=== PATIENT | female | born 1985 | race Caucasian/White ===

== ENCOUNTER 2023-10-10 12:35 | Outpatient (OUT) | payer OTHER, SELFPAY ==
[2023-10-10 13:17] LABS: Basophils Percent Auto 0.4 % (0.2-2.0); Eosinophils Percent Auto 0.6 % (0.9-7.0); Hematocrit 34.3 % (36.0-48.0); Hemoglobin 11.4 g/dL (12.0-16.0); Immature Granulocytes Abs Auto 0.02 10^3/uL (0.00-0.03); Immature Granulocytes Pct Auto 0.3 % (0.0-0.5); Lymphocytes Absolute Auto 1.6 10^3/uL (1.2-3.8); Lymphocytes Percent Auto 23.2 % (20.5-60.0); Mean Corpuscular HGB Conc 33.2 g/dL (29.9-35.2); Mean Corpuscular Hemoglobin 28.5 pg (26.7-34.0); Mean Corpuscular Volume 85.8 fL (81.0-99.0); Mean Platelet Volume 10.8 fL (9.5-13.5); Monocytes Absolute Auto 0.3 10^3/uL (0.3-0.8); Monocytes Percent Auto 4.5 % (1.7-12.0); Neutrophils Absolute Auto 4.9 10^3/uL (1.4-6.5); Platelet Count 213 10^3/uL (150-450); Red Cell Distribution Width 12.7 % (11.0-15.0); White Blood Count 6.9 10^3/uL (4.0-11.0)
[2023-10-10 14:43] LABS: Alanine Aminotransferase 25 U/L (14-59); Albumin Globulin Ratio 1.5; Alkaline Phosphatase 53 U/L (46-116); Anion Gap 12.8; Aspartate Amino Transferase 13 U/L (15-37); BUN Creatinine Ratio 17.7; Bilirubin Total 0.6 mg/dL (0.2-1.0); Calcium 9.5 mg/dL (8.5-10.1); Chloride 106 mmol/L (98-107); Chol HDL Ratio 2.4; Cholesterol 213 mg/dL (<=200); Estimated GFR (African America >60 (>=60); Estimated GFR (Non-African Ame >60 (>=60); Globulin 2.7 g/dL; Glucose 79 mg/dL (74-106); HDL Cholesterol 88 mg/dL (40-60); Potassium 3.8 mmol/L (3.5-5.1); Sodium 141 mmol/L (136-145); Thyroid Stimulating Hormone 0.592 uIU/mL (0.358-3.740); Total Protein 6.7 g/dL (6.4-8.2); Triglycerides 60 mg/dL (<=150)
[2023-10-10 15:11] LABS: Free T4 0.82 ng/dL (0.76-1.46)
== END 2023-10-10 12:36 | disposition home or self-care (01) ==
LOC: LAB 12:38
PROVIDERS: PCP Nurse Practitioner; Visit Provider Nurse Practitioner
DX: K21.9 Gastro-esophageal reflux disease without esophagitis (principal); E55.9 Vitamin D deficiency, unspecified; E03.9 Hypothyroidism, unspecified
CPT/HCPCS: 36415; 80053; 80061; 82306; 84439; 84443; 85025

== ENCOUNTER 2024-01-01 07:53 | Outpatient (OUT) | payer OTHER, SELFPAY ==
--- OUTSIDE RECORDS SUMMARY | 2024-01-01 08:00 | XMS_ITS | CCD ---
Author Organization [facility] Care Team Providers Care Hat Former Name Role Phone AICHHOLZ, ART TEACHER ONEYDA Admitting Unavailable AICHHOLZ, ART TEACHER ONEYDA Attending Unavailable AICHHOLZ, ART TEACHER ONEYDA Consulting Unavailable AICHHOLZ, ART TEACHER ONEYDA Primary Care Unavailable AICHHOLZ, ART TEACHER ONEYDA Primary Care Unavailable AICHHOLZ, ART TEACHER ONEYDA Admitting Unavailable AICHHOLZ, ART TEACHER ONEYDA Attending Unavailable AICHHOLZ, ART TEACHER ONEYDA Consulting Unavailable AICHHOLZ, ART TEACHER ONEYDA Admitting Unavailable AICHHOLZ, ART TEACHER ONEYDA Attending Unavailable AICHHOLZ, ART TEACHER ONEYDA Consulting Unavailable AICHHOLZ, ART TEACHER ONEYDA Primary Care Unavailable AICHHOLZ, ART TEACHER ONEYDA Admitting Unavailable AICHHOLZ, ART TEACHER ONEYDA Attending Unavailable AICHHOLZ, ART TEACHER ONEYDA Consulting Unavailable AICHHOLZ, ART TEACHER ONEYDA Primary Care Unavailable BLAIR CHESTER Consulting Unavailable Asaad, Imad Unavailable MD Arleen Imamy Attending Provider Oneyda Zapata Primary Care Provider Oneyda Zapata Primary Care Unavailable Asaad, Imad Admitting Unavailable Asaad, Imad Attending Unavailable Jodi Oneyda J Primary Care Unavailable Asaad, Imad Admitting Unavailable Asaad, Imad Attending Unavailable KOLBYZ, ONEYDA Attending Unavailable MAYELAHDARRIUSZ, ONEYDA Attending Unavailable Allergies Allergy Classification Reported Allergen(s) Allergy Type Date of Onset Reaction(s) Facility (1 source) Shellfish Drug allergy (disorder) 5 [facility] Repository (2 sources) Shellfish Propensity to adverse reactions anaphylaxis [employer] Other (1 source) Shrimp product Drug allergy (disorder) 3 [facility] Repository Medications Current Medications Medication Drug Class(es) Dates Sig (Normalized) Sig (Original) busPIRone hydrochloride 5 mg oral tablet (3 sources) Start: 01-10-2023 take 5 mg by mouth once daily Buspirone Active 5 MG PO Daily January 10, 2023 12:00am take 1 tablet by chi th every twelve hours busPIRone HCl 5 MG 1 tablet Orally Twice a day Active levothyroxine sodium 0.025 mg oral tablet (3 sources) l-Thyroxine Start: 01-10-2023 take 25 ug by mouth once daily Levothyroxine Active 25 MCG PO Daily January 10, 2023 12:00am Levothyroxine So dium Active polyethylene glycol 3350 [id number] mg / potassium chloride 2970 mg / sodium bicarbonate 6740 mg / sodium chloride 5860 mg / sodium sulfate 26981 mg powder for oral solution (2 sources) Osmotic Laxative Start: 11-26-2022 PEG-3350/Elec trolytes 236 GM as directed Orally once a day for 1 days Oct, Active Vitamin D (2 sources) Vitamin D 2500 M G Active Problems Active Problems Problem Classification Problem Date Documented Da te Episodic/Chronic Abdominal pain (2 sources) Unspecified abdominal pain; Translations: [Unspecified abdominal pain] Onset: 01-10-2023 Episodic Nutritional deficiencies (4 sources) Vitamin D deficiency, unspecified; Translations: [VITAMIN D DEFICIENCY UNSPECIFIED] Onset: 09-28-2022 Chronic Other gastrointestinal disorders (2 sources) Diarrhea; Translations: [Diarrhea, unspecified] Episodic Other gastrointestinal disorders (2 sources) Diarrhea, unspecified; Translations: [Diarrhea, unspecified] Onset: 12-04-2022 Episodic Other nutritional; endocrine; and metabolic disorders (7 sources) Abnormal weight loss; Translations: [ABNORMAL WEIGHT LOSS] Onset: 05-31-2022 Episodic Other nutritional; endocrine; and metabolic disorders (2 sources) Weight loss; Translations: [Abnormal weight loss] Episodic Thyroid disorders (1 source) Hypothyroidism, unspecified; Translations: [HYPOTHYROIDISM UNSPECIFIED] Onset: 10-03-2022 Chronic Past or Other Problems Problem Classification Problem Date Documented Da te Episodic/Chronic Other screening for suspected conditions (not mental disorders or infectious disease) (5 sources) Other specified abnormal findings of blood chemistry; Translations: [OTH SPEC ABNORMAL FINDINGS BLD CHEM] Onset: 06-04-2022 Episodic Residual codes; unclassified (1 source) Tobacco use; Translations: [TOBACCO USE] Onset: 06-06-2022 Episodic Results Test Name Value Interpretation Reference Range Facility Amphetamine Screen Ql (U)Ord ered By: Angeli Bacon on 01-10-2023 Amphetamines Ql (U) Negative Negative [facility] Barbiturates [Presence] in U rine by Screen methodOrdered By: Angeli Bacon on 01-10-2023 Barbiturates Screen Ql (U) Negative Negative [facility] Benzodiazepines Screen Ql (U )Ordered By: Angeli Bacon on 01-10-2023 Benzodiazepines Ql (U) Negative Negative [facility] Benzoylecgonine [Presence] i n Urine by Screen methodOrdered By: Angeli Bacon on 01-10-2023 Benzoylecgonine Screen Ql (U) Negative Negative [facility] Cannabinoids [Presence] in U rine by Screen methodOrdered By: Angeli Bacno on 01-10-2023 Cannabinoids Screen Ql (U) Positive Negative [facility] Comment on above: These are unconfirme d results and should not be used for legal purposes. Drug Cut-Off Concentration: AMPH 1000 ng/mL TABITHA 200 ng/mL MAAME 200 ng/mL COCM 300 ng/mL OP 300 ng/mL PCP 25 ng/mL THC 20 ng/mL Drug Screen,Urineon 01-11-20 23 Amphetamine Screen,Urine Negative Normal Negative [facility] Comment on above: Performed By: #### H IV SCREEN, CELIAC #### [facility] , #### TSH3, HEPATIC, CBC, CRP, LIPASE, ESR #### [facility] [address] [place] [address] [place] Barbiturate Screen,Urine Negative Normal Negative [facility] Comment on above: Performed By: #### H IV SCREEN, CELIAC #### [facility] , #### TSH3, HEPATIC, CBC, CRP, LIPASE, ESR #### [facility] [address] [place] [address] [place] Benzodiazepines Screen,Urine Negative Normal Negative [facility] Comment on above: Performed By: #### H IV SCREEN, CELIAC #### [facility] , #### TSH3, HEPATIC, CBC, CRP, LIPASE, ESR #### [address] Cannabinoid Screen,Urine Positive High Negative [facility] Comment on above: Result Comment: Thes e are unconfirmed results and should not be used for legal purposes. Drug Cut-Off Concentration: AMPH 1000 ng/mL TABITHA 200 ng/mL MAAME 200 ng/mL COCM 300 ng/mL OP 300 ng/mL PCP 25 ng/mL THC 20 ng/mL PERFORMED BY: [place] [address] PATHOLOGIST RECREATION SUPERVISOR BRITTANY WATT M.D. Performed By: #### H IV SCREEN, CELIAC #### [facility] , #### TSH3, HEPATIC, CBC, CRP, LIPASE, ESR #### [address] Cocaine Screen,Urine Negative Normal Negative [facility] Comment on above: Performed By: #### H IV SCREEN, CELIAC #### [facility] , #### TSH3, HEPATIC, CBC, CRP, LIPASE, ESR #### [facility] [address] [place] [address] Opiate Screen,Urine Negative Normal Negative [facility] Comment on above: Performed By: #### H IV SCREEN, CELIAC #### [facility] , #### TSH3, HEPATIC, CBC, CRP, LIPASE, ESR #### [facility] [address] [place] [address] Phencyclidine Screen,Urine Negative Normal Negative [facility] Comment on above: Performed By: #### H IV SCREEN, CELIAC #### [facility] , #### TSH3, HEPATIC, CBC, CRP, LIPASE, ESR #### [address] HCG ( test) IA.rapi d Ql (U)Ordered By: Angeli Bacon on 01-10-2023 HCG ( test) Ql (U) Negative [facility] HCG,Urineon 01-10-2023 Beta HCG ( test) Ql (U) Negative Normal [facility] Comment on above: Result Comment: PERF ORMED BY: [facility] [address] [facility] [address] PATHOLOGIST RECREATION SUPERVISOR BRITTANY AWTT M.D. Performed By: #### H IV SCREEN, CELIAC #### [facility] , #### TSH3, HEPATIC, CBC, CRP, LIPASE, ESR #### [facility] [address] 01-10-2023 L - -------- Specimen: [id number] Received: 01/10/23 Status: ROLAN Hank Num: [id number] Spec Type: Surgical Subm Dr: Angeli Bacon MD Tissues: A Duodenum - Biopsy (DUODENAL BX) B GASTRIC FOR HP (GASTRIC BX HP) C Colon Biopsy (RANDOM COLON BX) Procedures: HE/6, Gross/Micro L4/3, H PYLORI -------- Age/ Patient Sex Location Account Attending Physician -------- Marilee Galindo 37/F [id number] Angeli Bacon MD -------- SPEC NUM: [id number] RECD: 01/10/23 STATUS: ROLAN PYLE NUM: [id number] JESSICA: 01/10/[address]: Angeli Bacon MD ENTERED: 01/10/[address] [facility] [address]: DARRELL TYPE: Surgical DEPT: S ORDERED: HE/6, Gross/Micro L4/3, H PYLORI ORDERED: HE/6, Gross/Micro L4/3, H PYLORI Pathological Diagnosis A, Duodenal biopsy: - Duodenal mucosa with somewhat preserved villous structures in both fragments, but also showing minor degrees of stromal chronic inflammation and nonspecific chronic duodenitis, otherwise without erosion or any significant lymphocytic exocytosis identified, therefore also no features or effect of Gluten hypersensitivity observed or suspected B, Gastric biopsy: - Antral mucosa with mild reactive gastropathy, including mildly associated peptic congestions of the superficial lamina propria, otherwise without erosion, intestinal metaplasia, or any significant stromal chronic inflammation observed - H. pylori immunostain with provided control is also negative for identified Helicobacter organism or infection C, Random colon biopsies: - Colonic mucosa with adequately preserved mucosal glandular architecture in all fragments, and also without any abnormal stromal chronic inflammation, or any other features of microscopic colitis identified -------- Specimen: [id number] Received: 01/10/23 Status: ROLAN Pyle Num: [id number] Spec Type: Surgical Subm Dr: Angeli Bacon MD Tissues: A Duodenum - Biopsy (DUODENAL BX) B GASTRIC FOR HP (GASTRIC BX HP) C Colon Biopsy (RANDOM COLON BX) Procedures: HE/6, Gross/Micro L4/3, H PYLORI -------- Patient: Marilee Galindo [id number] (Continued) -------- Specimen: [id number] Received: 01/10/23 (Continued) Signed (signature on file) Aime Orr MD 01/13/23 1916 -------- Specimen: [id number] Received: 01/10/23 Status: ROLAN Pyle Num: [id number] Spec Type: Surgical Subm Dr: Angeli Bacon MD Tissues: A Duodenum - Biopsy (DUODENAL BX) B GASTRIC FOR HP (GASTRIC BX HP) C Colon Biopsy (RANDOM COLON BX) Procedures: HE/6, Gross/Micro L4/3, H PYLORI -------- Patient: Marilee Galindo [id number] (Continued) -------- Specimen: [id number] Received: 01/10/23-1222 (Continued) Clinical Information Abdomen pain, weight loss, diarrhea, rule out celiac, rule out H. pylori by IHC, rule out microscopic colitis Gross Description A. Received in formalin labeled with the patient's name, date of and duodenal biopsy rule out celiac are two hernández tissues averaging 0.3 cm. Entirely submitted in one cassette labeled A1. B. Received in formalin labeled with the patient's name, date of and gastric biopsy rule out H. pylori is one hernández tissue measuring 0.5 x 0.2 x 0.2 cm. Entirely submitted in one cassette labeled B1. C. Received in formalin labeled with the patient's name, date of and random colon biopsy rule out microscopic colitis are three hernández tissues ranging from 0.2 cm to 0.6 x 0.2 x 0.2 cm. Entirely submitted in one cassette labeled C1. Microscopic Description A. Two H E slides reviewed. The microscopic examination confirms the diagnosis. B. Two H E slides reviewed. The microscopic examination confirms the diagnosis. C. Two H E slides reviewed. The microscopic examination confirms the diagnosis. CPT Codes 87861i3, 50879 -------- -------- Specimen: [id number] Received: 01/10/23 Status: (more content not included)... Normal [facility] Opiates [Presence] in Urine by Screen methodOrdered By: Imad Asaad on 01-10-2023 Opiates Screen Ql (U) Negative Negative [facility] Phencyclidine Screen Ql (U)O rdered By: Imad Asaad on 01-10-2023 Phencyclidine Ql (U) Negative Negative [facility] Alanine aminotransferase [En zymatic activity/volume] in Serum or PlasmaOrdered By: Imad Asaad on 12-04-2022 ALT [Catalytic activity/Vol] 12 U/L 7-52 [facility] Albumin [Mass/volume] in Ser um or Plasma by Bromocresol green (BCG) dye binding methoOrdered By: Imad Asaad on 12-04-2022 Albumin BCG dye [Mass/Vol] 4.4 g/dL 3.5-5.7 [facility] Alkaline phosphatase [Enzyma tic activity/volume] in Serum or PlasmaOrdered By: Imad Asaad on 12-04-2022 ALP [Catalytic activity/Vol] 48 U/L 34-104 [facility] Aspartate aminotransferase [ Enzymatic activity/volume] in Serum or PlasmaOrdered By: Imad Asaad on 12-04-2022 AST [Catalytic activity/Vol] 14 U/L 13-39 [facility] Basophils Auto (Bld) [#/Vol] Ordered By: Imad Asaad on 12-04-2022 Basophils (Bld) [#/Vol] 0.1 10*3/uL 0.0-0.2 [facility] Basophils/100 WBC Auto (Bld) Ordered By: Imad Asaad on 12-04-2022 Basophils/100 WBC (Bld) 0.8 % . F [facility] Bilirubin.direct [Mass/volum e] in Serum or PlasmaOrdered By: Imad Asaad on 12-04-2022 Bilirubin.direct [Mass/Vol] 0.10 mg/dL 0.03-0.18 [facility] Bilirubin.total [Mass/volume ] in Serum or PlasmaOrdered By: Imad Asaad on 12-04-2022 Bilirubin [Mass/Vol] 0.9 mg/dL 0.3-1.0 [facility] C reactive protein [Mass/vol ume] in Serum or PlasmaOrdered By: Imad Asaad on 12-04-2022 CRP [Mass/Vol] < 0.5 mg/dL 0.0-0.5 [facility] C-Reactive Proteinon 023 CRP [Mass/Vol] mg/L Normal 0.0-0.5 [facility] Comment on above: Order Comment: Reaso n for Exam Diarrhea Performed By: #### H IV SCREEN, CELIAC #### [facility] , #### TSH3, HEPATIC, CBC, CRP, LIPASE, ESR #### [address] abdomen pelvis w conon CT abdomen pelvis w con [facility] [address] [place] [address] [place] [address] CT Scan Report Signed Patient: Marilee Galindo MR#: [id number] : 1985 Acct:[id number] Age/Sex: 37 / F ADM Date: 12/04/22 Loc: CT Room: Type: [facility] Attending Dr: Angeli Bacon MD Copies to: Angeli Bacon MD Ordering Provider: Angeli Bacon MD Date of Service: 12/04/22 CT/CT abdomen pelvis w con: Diarrhea;Weight loss;Acute abdominal pain CT ABDOMEN AND PELVIS WITH INTRAVENOUS CONTRAST: CLINICAL HISTORY: Diarrhea weight loss acute abdominal pain. COMPARISON: None TECHNIQUE: Spiral images were obtained through the abdomen and pelvis following the administration of intravenous contrast. This CT exam was performed using one or more following dose reduction techniques: Automated exposure control, adjustment of the mA and/or kV according to patient size, or use of iterative reconstruction technique. FINDINGS: Lung Bases: [No acute findings.] Organs:Gallbladder has been removed. Liver spleen pancreas and adrenal glands all appear unremarkable. No enhancing renal mass or hydronephrosis. Abdominal aorta appears normal in caliber.[ GI: Stomach is grossly unremarkable. Small bowel appears nondilated. No acute colonic abnormality.[ Pelvis:[Urinary bladder is grossly unremarkable. Fibroid uterus. No adnexal mass.] Peritoneum/Retroperit oneum:Trace free fluid. No free air. No lymphadenopathy.[ Abd wall/Bones:Abdominal wall demonstrates no acute findings. Osseous structures demonstrate degenerative change.[ CT/CT abdomen pelvis w con IMPRESSION: No acute findings. Impression dictated by: Roland Piper Jr., D.O.12/04/2022 4:33 PM Dictation Location: [place] [address] Transcribed By: [facility] 12/04/22 1633 Dictated By: Roland Piper Jr, DO 12/04/22 1628 Signed By: 12/04/22 1633 [facility] Celiacon 12-04-2022 Deamidated Gliadin Abs, IgA 4 Normal 0-19 [facility] Comment on above: Order Comment: Reaso n for Exam Diarrhea Result Comment: Nega tive 0 - 19 Weak Positive 20 - 30 Moderate to Strong Positive >30 Performed By: #### H IV SCREEN, CELIAC #### [facility] , #### TSH3, HEPATIC, CBC, CRP, LIPASE, ESR #### [facility] [address] Deamidated Gliadin Abs, IgG 7 Normal 0-19 [facility] Comment on above: Order Comment: Reaso n for Exam Diarrhea Result Comment: Nega tive 0 - 19 Weak Positive 20 - 30 Moderate to Strong Positive >30 Performed By: #### H IV SCREEN, CELIAC #### [facility] , #### TSH3, HEPATIC, CBC, CRP, LIPASE, ESR #### [facility] [address] [place] [address] [place] Endomysial Antibody IgA Negative Normal Negative [facility] Comment on above: Order Comment: Reaso n for Exam Diarrhea Performed By: #### H IV SCREEN, CELIAC #### [facility] , #### TSH3, HEPATIC, CBC, CRP, LIPASE, ESR #### [facility] [address] Immunoglobulin A, Qn, Serum 82 mg/dL Low 87-352 [facility] Comment on above: Order Comment: Reaso n for Exam Diarrhea Result Comment: Perf ormed at: [facility] [address] [id number] Reimbursement Consultant: Tj Jean PhD, Phone: [phone] Performed By: #### H IV SCREEN, CELIAC #### [facility] , #### TSH3, HEPATIC, CBC, CRP, LIPASE, ESR #### [facility] [address] [place] [address] T-Transglutaminase (tTG) IgA <2 Normal 0-3 [facility] Comment on above: Order Comment: Reaso n for Exam Diarrhea Result Comment: Nega tive 0 - 3 Weak Positive 4 - 10 Positive >10 Tissue Transglutaminase (tTG) has been identified as the endomysial antigen. Studies have demonstr- ated that endomysial IgA antibodies have over 99% specificity for gluten sensitive enteropathy. Performed By: #### H IV SCREEN, CELIAC #### [facility] , #### TSH3, HEPATIC, CBC, CRP, LIPASE, ESR #### [facility] [address] [place] [address] [place] T-Transglutaminase (tTG) IgG 3 Normal 0-5 [facility] Comment on above: Order Comment: Reaso n for Exam Diarrhea Result Comment: Nega tive 0 - 5 Weak Positive 6 - 9 Positive >9 Performed By: #### H IV SCREEN, CELIAC #### [facility] , #### TSH3, HEPATIC, CBC, CRP, LIPASE, ESR #### [facility] [address] Complete Blood Count Auto Di ffon 12-04-2022 Basophils (Bld) [#/Vol] 0.1 10*3/uL Normal 0.0-0.2 [facility] Comment on above: Order Comment: Reaso n for Exam Diarrhea Performed By: #### H IV SCREEN, CELIAC #### [facility] , #### TSH3, HEPATIC, CBC, CRP, LIPASE, ESR #### [facility] [address] [place] [address] Basophils/100 WBC (Bld) 0.8 % Normal . [facility] Comment on above: Order Comment: Reaso n for Exam Diarrhea Performed By: #### H IV SCREEN, CELIAC #### [facility] , #### TSH3, HEPATIC, CBC, CRP, LIPASE, ESR #### [address] Eosinophils (Bld) [#/Vol] 0.2 10*3/uL Normal 0.0-0.45 [facility] Comment on above: Order Comment: Reaso n for Exam Diarrhea Performed By: #### H IV SCREEN, CELIAC #### [facility] , #### TSH3, HEPATIC, CBC, CRP, LIPASE, ESR #### [facility] [address] [place] [address] Eosinophils/100 WBC (Bld) 2.1 % Normal . [facility] Comment on above: Order Comment: Reaso n for Exam Diarrhea Performed By: #### H IV SCREEN, CELIAC #### [facility] , #### TSH3, HEPATIC, CBC, CRP, LIPASE, ESR #### [facility] [address] [place] [address] Erythrocyte distribution width (RBC) [Ratio] 13.3 % Normal 11.9-15.3 [facility] Comment on above: Order Comment: Reaso n for Exam Diarrhea Performed By: #### H IV SCREEN, CELIAC #### [facility] , #### TSH3, HEPATIC, CBC, CRP, LIPASE, ESR #### [facility] [address] [place] [address] Hematocrit (Bld) [Volume fraction] 37.0 % Normal 34.0-46.4 [facility] Comment on above: Order Comment: Reaso n for Exam Diarrhea Performed By: #### H IV SCREEN, CELIAC #### [facility] , #### TSH3, HEPATIC, CBC, CRP, LIPASE, ESR #### [address] Hemoglobin (Bld) [Mass/Vol] 12.7 g/dL Normal 11.8-15.4 [facility] Comment on above: Order Comment: Reaso n for Exam Diarrhea Performed By: #### H IV SCREEN, CELIAC #### [facility] , #### TSH3, HEPATIC, CBC, CRP, LIPASE, ESR #### [address] Lymphocytes (Bld) [#/Vol] 2.0 10*3/uL Normal 1.00-4.8 [facility] Comment on above: Order Comment: Reaso n for Exam Diarrhea Performed By: #### H IV SCREEN, CELIAC #### [facility] , #### TSH3, HEPATIC, CBC, CRP, LIPASE, ESR #### [address] Lymphocytes/100 WBC (Bld) 27.8 % Normal . [facility] Comment on above: Order Comment: Reaso n for Exam Diarrhea Performed By: #### H IV SCREEN, CELIAC #### [facility] , #### TSH3, HEPATIC, CBC, CRP, LIPASE, ESR #### [address] MCH (RBC) [Entitic mass] 28.2 pg Normal 24.7-34.3 [facility] Comment on above: Order Comment: Reaso n for Exam Diarrhea Performed By: #### H IV SCREEN, CELIAC #### [facility] , #### TSH3, HEPATIC, CBC, CRP, LIPASE, ESR #### [facility] [address] MCV (RBC) [Entitic vol] 82.4 fL Normal 80-100 F [facility] Comment on above: Order Comment: Reaso n for Exam Diarrhea Performed By: #### H IV SCREEN, CELIAC #### [facility] , #### TSH3, HEPATIC, CBC, CRP, LIPASE, ESR #### [facility] [address] [place] [address] Mean Corpuscular HGB Conc 34.3 g/dL Normal 32.0-35.0 [facility] Comment on above: Order Comment: Reaso n for Exam Diarrhea Performed By: #### H IV SCREEN, CELIAC #### [facility] , #### TSH3, HEPATIC, CBC, CRP, LIPASE, ESR #### [facility] [address] [place] [address] Monocytes (Bld) [#/Vol] 0.5 10*3/uL Normal 0.0-0.8 [facility] Comment on above: Order Comment: Reaso n for Exam Diarrhea Performed By: #### H IV SCREEN, CELIAC #### [facility] , #### TSH3, HEPATIC, CBC, CRP, LIPASE, ESR #### [facility] [address] [place] [address] Monocytes/100 WBC (Bld) 6.4 % Normal . [facility] Comment on above: Order Comment: Reaso n for Exam Diarrhea Performed By: #### H IV SCREEN, CELIAC #### [facility] , #### TSH3, HEPATIC, CBC, CRP, LIPASE, ESR #### [facility] [address] [place] [address] Neutrophils (Bld) [#/Vol] 4.5 10*3/uL Normal 1.8-7.7 [facility] Comment on above: Order Comment: Reaso n for Exam Diarrhea Performed By: #### H IV SCREEN, CELIAC #### [facility] , #### TSH3, HEPATIC, CBC, CRP, LIPASE, ESR #### [facility] [address] Neutrophils/100 WBC (Bld) 62.9 % Normal . [facility] Comment on above: Order Comment: Reaso n for Exam Diarrhea Performed By: #### H IV SCREEN, CELIAC #### [facility] , #### TSH3, HEPATIC, CBC, CRP, LIPASE, ESR #### [facility] [address] [place] [address] NRBC% 0.1 /100{WBC} Normal 0-0.5 [facility] Comment on above: Order Comment: Reaso n for Exam Diarrhea Performed By: #### H IV SCREEN, CELIAC #### [facility] , #### TSH3, HEPATIC, CBC, CRP, LIPASE, ESR #### [facility] [address] [place] [address] Platelet mean volume (Bld) [Entitic vol] 8.9 fL Normal 6.3-10.7 [facility] Comment on above: Order Comment: Reaso n for Exam Diarrhea Performed By: #### H IV SCREEN, CELIAC #### [facility] , #### TSH3, HEPATIC, CBC, CRP, LIPASE, ESR #### [facility] [address] [place] [address] [place] Platelets (Bld) [#/Vol] 197 10*3/uL Normal 150-450 [facility] Comment on above: Order Comment: Reaso n for Exam Diarrhea Performed By: #### H IV SCREEN, CELIAC #### [facility] , #### TSH3, HEPATIC, CBC, CRP, LIPASE, ESR #### [facility] [address] [place] [address] [place] RBC (Bld) [#/Vol] 4.49 10*6/uL Normal 3.60-5.00 [facility] Comment on above: Order Comment: Reaso n for Exam Diarrhea Performed By: #### H IV SCREEN, CELIAC #### [facility] , #### TSH3, HEPATIC, CBC, CRP, LIPASE, ESR #### [facility] [address] [place] [address] WBC (Bld) [#/Vol] 7.2 10*3/uL Normal 3.8-11.6 [facility] Comment on above: Order Comment: Reaso n for Exam Diarrhea Performed By: #### H IV SCREEN, CELIAC #### [facility] , #### TSH3, HEPATIC, CBC, CRP, LIPASE, ESR #### [facility] [address] [place] [address] Eosinophils Auto (Bld) [#/Vo l]Ordered By: Imad Asaad on 12-04-2022 Eosinophils (Bld) [#/Vol] 0.2 10*3/uL 0.0-0.45 [facility] Eosinophils/100 WBC Auto (Bl d)Ordered By: Imad Asaad on 12-04-2022 Eosinophils/100 WBC (Bld) 2.1 % . [facility] Erythrocyte Sedimentation Ra cary 12-04-2022 ESR (Bld) [Velocity] 2 mm/h Normal 0-19 [facility] Comment on above: Order Comment: Reaso n for Exam Diarrhea Result Comment: PERF ORMED BY: [place] [address] PATHOLOGIST RECREATION SUPERVISOR BRITTANY WATT M.D. Performed By: #### H IV SCREEN, CELIAC #### [facility] , #### TSH3, HEPATIC, CBC, CRP, LIPASE, ESR #### [facility] [address] [place] [address] Erythrocyte distribution wid th Auto (RBC) [Ratio]Ordered By: Imad Asaad on 12-04-2022 Erythrocyte distribution width (RBC) [Ratio] 13.3 % 11.9-15.3 [facility] Erythrocyte sedimentation ra te by Photometric methodOrdered By: Imad Asaad on 12-04-2022 ESR Photometric method (Bld) [Velocity] 2 mm/hr 0-19 [facility] Globulin Calc (S) [Mass/Vol] Ordered By: Imad Asaad on 12-04-2022 Globulin (S) [Mass/Vol] 2.0 g/dL F [facility] HIV 1/O/2 Antigen/Antibodyo n 12-04-2022 HIV Screen 4th Generation Non-Reactive Normal Non Reactive [facility] Comment on above: Order Comment: Reaso n for Exam Diarrhea Result Comment: HIV Negative HIV-1/HIV-2 antibodies and HIV-1 p24 antigen were NOT detected. There is no laboratory evidence of HIV infection. Performed at: [facility] [address] [place], [place] [id number] Reimbursement Consultant: Tj Jean PhD, Phone: [phone] PERFORMED BY: [place] [address] PATHOLOGIST RECREATION SUPERVISOR BRITTANY WATT M.D. Performed By: #### H IV SCREEN, CELIAC #### [facility] , #### TSH3, HEPATIC, CBC, CRP, LIPASE, ESR #### [address] HIV 1 and HIV-2 antibody ass ay with HIV-1 p24 antigen detectionOrdered By: Imad Asa on 12-04-2022 HIV 1+2 Ab+HIV1 p24 Ag IA Ql Non-Reactive Non Reactive [facility] Comment on above: HIV NegativeHIV-1/HI V-2 antibodies and HIV-1 p24 antigen were NOTdetected. There is no laboratory evidence of HIV infection.Performed at: [id number] [place], [place] [id number] Director: Tj Jean PhD, Phone: [phone] Hematocrit Auto (Bld) [Volum e fraction]Ordered By: Imad Asaad on 12-04-2022 Hematocrit (Bld) [Volume fraction] 37.0 % 34.0-46.4 [facility] Hemoglobin [Mass/volume] in BloodOrdered By: Imamy Asaad on 12-04-2022 Hemoglobin (Bld) [Mass/Vol] 12.7 g/dL 11.8-15.4 [facility] Hepatic Panelon 12-04-2022 Albumin [Mass/Vol] 4.4 g/dL Normal 3.5-5.7 [facility] Comment on above: Order Comment: Reaso n for Exam Diarrhea Performed By: #### H IV SCREEN, CELIAC #### [facility] , #### TSH3, HEPATIC, CBC, CRP, LIPASE, ESR #### [facility] [address] [place] [address] [place] Albumin/Globulin [Mass ratio] 2.2 {ratio} Normal [facility] Comment on above: Order Comment: Reaso n for Exam Diarrhea Performed By: #### H IV SCREEN, CELIAC #### [facility] , #### TSH3, HEPATIC, CBC, CRP, LIPASE, ESR #### [facility] [address] [place] [id number] [place] ALP [Catalytic activity/Vol] 48 U/L Normal 34-104 [facility] Comment on above: Order Comment: Reaso n for Exam Diarrhea Performed By: #### H IV SCREEN, CELIAC #### [facility] , #### TSH3, HEPATIC, CBC, CRP, LIPASE, ESR #### [facility] [address] [place] [address] [place] ALT [Catalytic activity/Vol] 12 U/L Normal 7-52 [facility] Comment on above: Order Comment: Reaso n for Exam Diarrhea Performed By: #### H IV SCREEN, CELIAC #### [facility] , #### TSH3, HEPATIC, CBC, CRP, LIPASE, ESR #### [facility] [address] [place] [id number] [place] AST [Catalytic activity/Vol] 14 U/L Normal 13-39 [facility] Comment on above: Order Comment: Reaso n for Exam Diarrhea Performed By: #### H IV SCREEN, CELIAC #### [facility] , #### TSH3, HEPATIC, CBC, CRP, LIPASE, ESR #### [facility] [address] Bilirubin [Mass/Vol] 0.9 mg/dL Normal 0.3-1.0 [facility] Comment on above: Order Comment: Reaso n for Exam Diarrhea Performed By: #### H IV SCREEN, CELIAC #### [facility] , #### TSH3, HEPATIC, CBC, CRP, LIPASE, ESR #### [address] Bilirubin,Indirect 0.8 mg/dL Normal [facility] Comment on above: Order Comment: Reaso n for Exam Diarrhea Performed By: #### H IV SCREEN, CELIAC #### [facility] , #### TSH3, HEPATIC, CBC, CRP, LIPASE, ESR #### [address] Bilirubin.indirect [Mass/Vol] 0.10 mg/dL Normal 0.03-0.18 [facility] Comment on above: Order Comment: Reaso n for Exam Diarrhea Performed By: #### H IV SCREEN, CELIAC #### [facility] , #### TSH3, HEPATIC, CBC, CRP, LIPASE, ESR #### [address] Globulin (S) [Mass/Vol] 2.0 g/dL Normal [facility] Comment on above: Order Comment: Reaso n for Exam Diarrhea Performed By: #### H IV SCREEN, CELIAC #### [facility] , #### TSH3, HEPATIC, CBC, CRP, LIPASE, ESR #### [facility] [address] [place] [address] Protein [Mass/Vol] 6.4 g/dL Normal 6.4-8.9 [facility] Comment on above: Order Comment: Reaso n for Exam Diarrhea Performed By: #### H IV SCREEN, CELIAC #### [facility] , #### TSH3, HEPATIC, CBC, CRP, LIPASE, ESR #### [facility] [address] [place] [address] [place] IgA [Mass/volume] in Serum o r PlasmaOrdered By: Imad Asaad on 12-04-2022 IgA [Mass/Vol] 82 mg/dL 87-352 [facility] Comment on above: Performed at: [address] [id number] Director: Tj Jean PhD, Phone: [phone] Leukocytes [#/volume] correc cassidy for nucleated erythrocytes in Blood by Automated counOrdered By: Imad Asaad on 12-04-2022 WBC corrected for nucl RBC Auto (Bld) [#/Vol] 7.2 10*3/uL 3.8-11.6 [facility] Lipaseon 12-04-2022 Lipase [Catalytic activity/Vol] 16.0 U/L Normal 11.0-82.0 [facility] Comment on above: Order Comment: Reaso n for Exam Diarrhea Performed By: #### H IV SCREEN, CELIAC #### [facility] , #### TSH3, HEPATIC, CBC, CRP, LIPASE, ESR #### [facility] [address] [place] [address] [place] Lipase [Enzymatic activity/v olume] in Serum or PlasmaOrdered By: Imad Asaad on 12-04-2022 Lipase [Catalytic activity/Vol] 16.0 U/L 11.0-82.0 [facility] Lymphocytes Auto (Bld) [#/Vo l]Ordered By: Imad Asaad on 12-04-2022 Lymphocytes (Bld) [#/Vol] 2.0 10*3/uL 1.00-4.8 [facility] Lymphocytes/100 WBC Auto (Bl d)Ordered By: Imad Asaad on 12-04-2022 Lymphocytes/100 WBC (Bld) 27.8 % . [facility] MCH Auto (RBC) [Entitic mass ]Ordered By: Imad Asaad on 12-04-2022 MCH (RBC) [Entitic mass] 28.2 pg 24.7-34.3 [facility] MCHC Auto (RBC) [Mass/Vol]Or dered By: Imad Asaad on 12-04-2022 MCHC (RBC) [Mass/Vol] 34.3 g/dL 32.0-35.0 [facility] MCV Auto (RBC) [Entitic vol] Ordered By: Imad Asaad on 12-04-2022 MCV (RBC) [Entitic vol] 82.4 fL 80-100 F [facility] Monocytes Auto (Bld) [#/Vol] Ordered By: Imad Asaad on 12-04-2022 Monocytes (Bld) [#/Vol] 0.5 10*3/uL 0.0-0.8 [facility] Monocytes/100 WBC Auto (Bld) Ordered By: Imad Asaad on 12-04-2022 Monocytes/100 WBC (Bld) 6.4 % . F [facility] Neutrophils Auto (Bld) [#/Vo l]Ordered By: Imad Asaad on 12-04-2022 Neutrophils (Bld) [#/Vol] 4.5 10*3/uL 1.8-7.7 [facility] Neutrophils/100 WBC Auto (Bl d)Ordered By: Imad Asaad on 12-04-2022 Neutrophils/100 WBC (Bld) 62.9 % . [facility] No Panel InformationOrdered By: Imad Asaad on 12-04-2022 Endomysial IgA Antibody Negative Negative [facility] Nucleated erythrocytes [Pres ence] in Blood by Automated countOrdered By: Imad Asaad on 12-04-2022 Nucleated RBC Auto Ql (Bld) 0.1 /100{WBC} 0-0.5 [facility] Platelet mean volume Auto (B ld) [Entitic vol]Ordered By: Imad Asaad on 12-04-2022 Platelet mean volume (Bld) [Entitic vol] 8.9 fL 6.3-10.7 [facility] Platelets Auto (Bld) [#/Vol] Ordered By: Imad Asaad on 12-04-2022 Platelets (Bld) [#/Vol] 197 10*3/uL 150-450 [facility] Protein [Mass/volume] in Ser um or PlasmaOrdered By: [facility] on 12-04-2022 Protein [Mass/Vol] 6.4 g/dL 6.4-8.9 [facility] RBC Auto (Bld) [#/Vol]Ordere d By: [facility] on 12-04-2022 RBC (Bld) [#/Vol] 4.49 10*6/uL 3.60-5.00 [facility] Serum gliadin peptide IgA an tibody assay (units/volume)Ordered By: [facility] on 12-04-2022 Gliadin peptide IgA Qn (S) 4 units 0-19 [facility] Comment on above: Negative 0 - 19 Weak Positive 20 - 30 Moderate to Strong Positive >30 Serum gliadin peptide IgG an tibody assay (units/volume)Ordered By: [facility] on 12-04-2022 Gliadin peptide IgG Qn (S) 7 units 0-19 [facility] Comment on above: Negative 0 - 19 Weak Positive 20 - 30 Moderate to Strong Positive >30 Serum or plasma albumin/glob ulin mass ratioOrdered By: [facility] on 12-04-2022 Albumin/Globulin [Mass ratio] 2.2 {ratio} [facility] Serum or plasma non-glucuron idated bilirubin measurement (mass/volume)Ordered By: [facility] 12-04-2022 Bilirubin.indirect [Mass/Vol] 0.8 mg/dL [facility] Serum tissue transglutaminas e (tTG) IgA antibody assay (units/volume)Ordered By: [facility] 12-04-2022 tTG IgA Qn (S) <2 U/mL 0-3 [facility] Comment on above: Negative 0 - 3 Weak Positive 4 - 10 Positive >10 Tissue Transglutaminase (tTG) has been identified as the endomysial antigen. Studies have demonstr- ated that endomysial IgA antibodies have over 99% specificity for gluten sensitive enteropathy. Serum tissue transglutaminas e (tTG) IgG antibody assay (units/volume)Ordered By: [facility] on 12-04-2022 tTG IgG Qn (S) 3 U/mL 0-5 [facility] Comment on above: Negative 0 - 5 Weak Positive 6 - 9 Positive >9 Thyroid Stimulating Hormoneo n 12-04-2022 TSH Qn 0.53 m[IU]/L Normal 0.45-5.33 [facility] Comment on above: Order Comment: Reaso n for Exam Diarrhea Result Comment: PERF ORMED BY: [facility] [address] [place] [address] PATHOLOGIST RECREATION SUPERVISOR BRITTANY WATT M.D. Performed By: #### H IV SCREEN, CELIAC #### [facility] , #### TSH3, HEPATIC, CBC, CRP, LIPASE, ESR #### [facility] [address] Thyrotropin [Units/volume] i n Serum or PlasmaOrdered By: Angeli Bacon on 12-04-2022 TSH Qn 0.53 m[IU]/L 0.45-5.33 [facility] WBC Auto (Bld) [#/Vol]Ordere d By: Imad Arleen on 12-04-2022 WBC (Bld) [#/Vol] 7.2 10*3/uL 3.8-11.6 [facility] FREE T3on 09-28-2022 FREE T3 2.72 pg/mlL Normal 2.18-3.98 [facility] Comment on above: Performed By: #### F T3, TSH ####[facility] [address] [place], [place] [address]VbDr. Remberto Orr FREE T4on 09-28-2022 Free T4 [Mass/Vol] 0.94 ng/dL Normal 0.76-1.46 [facility] Comment on above: Performed By: #### F T4, VITAD #### [facility] [address] [place], [place] [address] Dr. Remberto Orr TSHon 09-28-2022 TSH 0.595 uIU/mL Normal 0.358-3.740 [facility] Comment on above: Performed By: #### F T3, TSH ####[facility] [address] [place], [place] [address]ZxDr. Remberto Orr VITAMIN D 25 OHon 09-28-2022 VIT D 25-OH 21.9 ng/mL Normal [facility] Comment on above: Performed By: #### F T4, VITAD ####[facility] [address] [place] [address]Dr. Remberto Orr VIT D RANGES SEE BELOW Normal [facility] Comment on above: Result Comment: <20 ng/mL Vit D deficient 20 - <30 ng/mL Vit D insufficient 30 - 100 ng/mL Vit D sufficient >100 ng/mL Potential Toxicity Performed By: #### F T4, VITAD ####[facility] [address] [place] [id number]. Remberto Orr THYROID ANTIBODIESon 023 Thyroglobulin Antibody <1.0 Normal 0.0-0.9 [facility] Comment on above: Result Comment: Thyr oglobulin Antibody measured by [employer] Methodology Performed By: #### T HYRABS ####[facility] [address] [place], [place] [address]Dr. Remberto Orr Thyroid Peroxidase (TPO) Ab 9 IU/mL Normal 0-34 [facility] Comment on above: Performed By: #### T HYRABS ####[facility] [address] [place], [place] [address]Dr. Remberto Orr OCC BLD IMMUNO SCREENon OCCULT BLOOD Negative Normal NEGATIVE [facility] Comment on above: Performed By: #### O BSCRN ####[facility] [address] [place], [place] [address]Dr. Remberto Orr FREE T4on 05-31-2022 Free T4 [Mass/Vol] 0.65 ng/dL Critically low 0.76-1.46 [facility] Comment on above: Performed By: #### F T4 ####[facility] [address] [place], [place] [address]Dr. Remberto Orr TSHon 05-31-2022 TSH 0.991 uIU/mL Normal 0.358-3.740 [facility] Comment on above: Performed By: #### T SH #### [facility] [address] [place] [address] [address] Remberto Orr XR CHEST 2 Von 05-31-2022 XR CHEST 2 V EXAM: XR CHEST 2 V HISTORY: Blood chemistry abnormal COMPARISON: 01/05/2021 TECHNIQUE: Upright PA and lateral chest x-ray FINDINGS: The heart is not enlarged and the vasculature is not distended. No acute infiltrate, effusion or pneumothorax is identified. The osseous structures are grossly intact. IMPRESSION: No acute infiltrate or evidence of cardiac decompensation. The overall appearance of the chest is unchanged. Electronically authenticated by: BLAIR CHESTER Date: 2022-05-31 15:50 Normal [facility] AMYLASEon 05-28-2022 Amylase [Catalytic activity/Vol] 52 U/L Normal 25-115 [facility] Comment on above: Performed By: #### A MY, FT3, TSH, CRP, CMP, LIPA #### [facility] [address] [place] [address] Dr. Remberto Orr CBC AUTO DIFFon 05-28-2022 BASO # 0.1 103/ul Normal 0.0-0.1 [facility] Comment on above: Performed By: #### C BC #### [facility] [address] [place] [address] Dr. Remberto Orr Basophils/100 WBC (Bld) 0.6 % Normal 0.2-2.0 [facility] Comment on above: Performed By: #### C BC #### [facility] [address] [place] [address] Dr. Remberto Orr EO # 0.3 103/ul Normal 0.0-0.7 [facility] Comment on above: Performed By: #### C BC #### [facility] [address] [place] [address] Dr. Remberto Orr Eosinophils/100 WBC (Bld) 3.6 % Normal 0.9-7.0 [facility] Comment on above: Performed By: #### C BC #### [facility] [address] [place] [address] Dr. Remberto Orr Erythrocyte distribution width (RBC) [Ratio] 12.5 % Normal 11.0-15.0 [facility] Comment on above: Performed By: #### C BC #### [facility] [address] [place] [address] Dr. Remberto Orr Hematocrit (Bld) [Volume fraction] 38.6 % Normal 36.0-48.0 [facility] Comment on above: Performed By: #### C BC #### [facility] [address] [place] [address] Dr. Remberto Orr Hemoglobin (Bld) [Mass/Vol] 13.1 g/dL Normal 12.0-16.0 [facility] Comment on above: Performed By: #### C BC #### [facility] [address] [place] [address] Dr. Remberto Orr IG # 0.02 10e3/ul Normal 0.00-0.03 [facility] Comment on above: Performed By: #### C BC #### [facility] [address] [place] [address] Dr. Remberto Orr IG % 0.3 % Normal 0.0-0.5 [facility] Comment on above: Performed By: #### C BC #### [facility] [address] [place] [address] Dr. Remberto Orr LYMPH # 2.4 103/ul Normal 1.2-3.8 [facility] Comment on above: Performed By: #### C BC #### [facility] [address] [place] [address] Dr. Remberto Orr Lymphocytes/100 WBC (Bld) 30.8 % Normal 20.5-60.0 [facility] Comment on above: Performed By: #### C BC #### [facility] [address] [place] [address] Dr. Remberto Orr MANUAL DIFF REQ NO Normal [facility] Comment on above: Performed By: #### C BC #### [facility] [address] [place] [address] Dr. Remberto Orr MCH (RBC) [Entitic mass] 28.4 pg Normal 26.7-34.0 [facility] Comment on above: Performed By: #### C BC #### [facility] [address] [place] [address] Dr. Remberto Orr MCHC (RBC) [Mass/Vol] 33.9 g/dL Normal 29.9-35.2 [facility] Comment on above: Performed By: #### C BC #### [facility] [address] [place] [address] Dr. Remberto Orr MCV (RBC) [Entitic vol] 83.7 fL Normal 81.0-99.0 [facility] Comment on above: Performed By: #### C BC #### [facility] [address] [place] [address] Dr. Remberto Orr MONO # 0.5 103/ul Normal 0.3-0.8 [facility] Comment on above: Performed By: #### C BC #### [facility] [address] [place] [address] Dr. Remberto Orr Monocytes/100 WBC (Bld) 5.9 % Normal 1.7-12.0 [facility] Comment on above: Performed By: #### C BC #### [facility] [address] [place] [address] Dr. Remberto Orr NEUT # 4.6 103/ul Normal 1.4-6.5 [facility] Comment on above: Performed By: #### C BC #### [facility] [address] [place] [address] Dr. Remberto Orr Neutrophils/100 WBC (Bld) 58.8 % Normal 43.0-75.0 [facility] Comment on above: Performed By: #### C BC #### [facility] [address] [place] [address] Dr. Remberto Orr Platelet mean volume (Bld) [Entitic vol] 10.3 fL Normal 9.5-13.5 [facility] Comment on above: Performed By: #### C BC #### [facility] [address] [place] [address] Dr. Remberto Orr PLT 273 103/ul Normal 150-450 [facility] Comment on above: Performed By: #### C BC #### [facility] [address] [place] [address] Dr. Remberto Orr RBC 4.61 106/ul Normal 4.20-5.40 [facility] Comment on above: Performed By: #### C BC #### [facility] [address] [place] [address] [address] Remberto Orr WBC 7.9 103/ul Normal 4.0-11.0 [facility] Comment on above: Performed By: #### C BC #### [facility] [address] [place] [address] [address] Remberto Orr CRPon 05-28-2022 CRP [Mass/Vol] mg/L Normal <=1.0 [facility] Comment on above: Performed By: #### A MY, FT3, TSH, CRP, CMP, LIPA #### [facility] [address] [place] [address] Dr. Remberto Orr FREE T3on 05-28-2022 FREE T3 2.50 pg/mlL Normal 2.18-3.98 [facility] Comment on above: Performed By: #### A MY, FT3, TSH, CRP, CMP, LIPA #### [facility] [address] [place] [address] [address] Remberto Orr FREE T4on 05-28-2022 Free T4 [Mass/Vol] 0.68 ng/dL Critically low 0.76-1.[address] [facility] Comment on above: Performed By: #### A MY, FT3, TSH, CRP, CMP, LIPA #### [facility] [address] [place] [address] [address] Remberto Orr IRONon 05-28-2022 Iron [Mass/Vol] 46.0 ug/dL Critically low 50.0-170.0 [facility] Comment on above: Performed By: #### I CLEMENTINE, VITB12, VITAD, FT4 ####[facility] [address] [place] [address]Dr. Remberto Orr LIPASEon 05-28-2022 Lipase [Catalytic activity/Vol] 126.0 U/L Normal 73.0-393.0 [facility] Comment on above: Performed By: #### A MY, FT3, TSH, CRP, CMP, LIPA #### [facility] [address] [place] [address] Dr. Remberto Orr PROF 14(COMP METB)on 022 Albumin [Mass/Vol] 3.8 g/dL Normal 3.4-5.0 [facility] Comment on above: Performed By: #### A MY, FT3, TSH, CRP, CMP, LIPA #### [facility] [address] [place] [address] Dr. Remberto Orr Albumin/Globulin [Mass ratio] 1.4 {ratio} Normal [facility] Comment on above: Performed By: #### A MY, FT3, TSH, CRP, CMP, LIPA #### [facility] [address] [place] [address] Dr. Remberto Orr ALP [Catalytic activity/Vol] 73 U/L Normal 46-116 [facility] Comment on above: Performed By: #### A MY, FT3, TSH, CRP, CMP, LIPA #### [facility] [address] [place] [address] Dr. Remberto Orr ALT [Catalytic activity/Vol] 16 U/L Normal 14-59 [facility] Comment on above: Performed By: #### A MY, FT3, TSH, CRP, CMP, LIPA #### [facility] [address] [place] [address] Dr. Remberto Orr Anion gap [Moles/Vol] 10.0 mmol/L Normal [facility] Comment on above: Performed By: #### A MY, FT3, TSH, CRP, CMP, LIPA #### [facility] [address] [place] [address] Dr. Remberto Orr AST [Catalytic activity/Vol] 16 U/L Normal 15-37 [facility] Comment on above: Performed By: #### A MY, FT3, TSH, CRP, CMP, LIPA #### [facility] [address] [place] [address] Dr. Remberto Orr Bilirubin [Mass/Vol] 0.3 mg/dL Normal 0.2-1.0 [facility] Comment on above: Performed By: #### A MY, FT3, TSH, CRP, CMP, LIPA #### [facility] [address] [place] [address] [address] Remberto Orr Calcium [Mass/Vol] 8.8 mg/dL Normal 8.5-10.1 [facility] Comment on above: Performed By: #### A MY, FT3, TSH, CRP, CMP, LIPA #### [facility] [address] [place] [address] [address] Remberto Orr Chloride [Moles/Vol] 104 mmol/L Normal 98-107 [facility] Comment on above: Performed By: #### A MY, FT3, TSH, CRP, CMP, LIPA #### [facility] [address] [place] [address] Dr. Remberto Orr CO2 [Moles/Vol] 29.5 mmol/L Normal 21.0-32.0 [facility] Comment on above: Performed By: #### A MY, FT3, TSH, CRP, CMP, LIPA #### [facility] [address] [place] [address] Dr. Remberto Orr Creatinine [Mass/Vol] 0.55 mg/dL Normal 0.55-1.02 [facility] Comment on above: Performed By: #### A MY, FT3, TSH, CRP, CMP, LIPA #### [facility] [address] [place] [address] Dr. Remberto Orr EGFR-AF MALAWIAN >60 Normal >=60 [facility] Comment on above: Performed By: #### A MY, FT3, TSH, CRP, CMP, LIPA #### [facility] [address] [place] [address] Dr. Remberto Orr EGFR-NON AF MALAWIAN >60 Normal >=60 [facility] Comment on above: Performed By: #### A MY, FT3, TSH, CRP, CMP, LIPA #### [facility] [address] [place] [address] [address] Remberto Orr Globulin (S) [Mass/Vol] 2.7 g/dL Normal [facility] Comment on above: Performed By: #### A MY, FT3, TSH, CRP, CMP, LIPA #### [facility] [address] [place] [address] Dr. Remberto Orr Glucose [Mass/Vol] 93 mg/dL Normal 74-106 [facility] Comment on above: Performed By: #### A MY, FT3, TSH, CRP, CMP, LIPA #### [facility] [address] [place] [address] Dr. Remberto Orr Potassium [Moles/Vol] 3.5 mmol/L Normal 3.5-5.1 [facility] Comment on above: Performed By: #### A MY, FT3, TSH, CRP, CMP, LIPA #### [facility] [address] [place] [address] Dr. Remberto Orr Protein [Mass/Vol] 6.5 g/dL Normal 6.4-8.2 [facility] Comment on above: Performed By: #### A MY, FT3, TSH, CRP, CMP, LIPA #### [facility] [address] [place] [address] Dr. Remberto Orr Sodium [Moles/Vol] 140 mmol/L Normal 136-145 [facility] Comment on above: Performed By: #### A MY, FT3, TSH, CRP, CMP, LIPA #### [facility] [address] [place] [address] Dr. Remberto Orr Urea nitrogen [Mass/Vol] 10.0 mg/dL Normal 7.0-18.0 [facility] Comment on above: Performed By: #### A MY, FT3, TSH, CRP, CMP, LIPA #### [facility] [address] [place] [address] Dr. Remberto Orr Urea nitrogen/Creatinine [Mass ratio] 18.2 mg/mg Normal [facility] Comment on above: Performed By: #### A MY, FT3, TSH, CRP, CMP, LIPA #### [facility] [address] [place] [address] Dr. Remberto Orr SED RATE [facility] 2021 SED RATE <1 Normal <=20 [facility] Comment on above: Performed By: #### A MY, FT3, TSH, CRP, CMP, LIPA #### [facility] [address] [place] [address] [address] Remberto Orr TSHon 05-28-2022 TSH 0.985 uIU/mL Normal 0.358-3.740 [facility] Comment on above: Performed By: #### A MY, FT3, TSH, CRP, CMP, LIPA #### [facility] [address] [address] [address] Remberto Orr UA RANDOM W/MICROSCOPICon BACTERIA NONE SEEN Normal NONE SEEN [facility] Comment on above: Performed By: #### U AMIC ####[facility] [address] [address]Dr. Remberto Orr Bilirubin Ql (U) Negative Normal NEGATIVE [facility] Comment on above: Performed By: #### U AMIC ####[facility] [address] [place], [place] [address]DrSky Orr CAST NONE SEEN Normal NONE SEEN [facility] Comment on above: Performed By: #### U AMIC ####[facility] [address] [address]Dr. Remberto Orr Clarity (U) CLEAR Normal CLEAR [facility] Comment on above: Performed By: #### U AMIC ####[facility] [address] [address]Dr. Remberto Orr Color (U) LT. YELLOW Normal YELLOW [facility] Comment on above: Performed By: #### U AMIC ####[facility] [address] [address]Dr. Remberto Orr Crystals LM Nom (Urine sed) NONE SEEN Normal NONE SEEN [facility] Comment on above: Performed By: #### U AMIC ####[facility] [address] [address]Dr. Remberto Orr Epithelial cells LM Ql (Urine sed) MODERATE Abnormal NONE SEEN /RARE [facility] Comment on above: Performed By: #### U AMIC ####[facility] [address] [address]Dr. Remberto Orr Glucose Ql (U) Negative Normal NEGATIVE [facility] Comment on above: Performed By: #### U AMIC ####[facility] [address] [address]Dr. Remberto Orr Hemoglobin Ql (U) Negative Normal NEGATIVE The [facility] Comment on above: Performed By: #### U AMIC ####[facility] [address] [place], [place] [address]Dr. Remberto Orr Ketones Ql (U) TRACE Abnormal NEGATIVE [facility] Comment on above: Performed By: #### U AMIC ####[facility] [address] [place], [place] [address]Dr. Remberto Orr LEUKOCYTES Negative Normal NEGATIVE [facility] Comment on above: Performed By: #### U AMIC ####[facility] [address] [place], [place] [address]Dr. Remberto Orr MUCOUS TRACE Abnormal NONE SEEN [facility] Comment on above: Performed By: #### U AMIC ####[facility] [address] [place], [place] [address]Dr. Remberto Orr Nitrite Ql (U) Negative Normal NEGATIVE [facility] Comment on above: Performed By: #### U AMIC ####[facility] [address] [place], [place] [address]Dr. Remberto Orr pH (U) 6.5 [pH] Normal 5-9 [facility] Comment on above: Performed By: #### U AMIC ####[facility] [address] [place], [place] [address]Dr. Remberto Orr RBC 0-2 Normal 0-2 [facility] Comment on above: Performed By: #### U AMIC ####[facility] [address] [place], [place] [address]Dr. Remberto Orr SPEC GRAVITY 1.025 Normal 1.005-<=1.025 [facility] Comment on above: Performed By: #### U AMIC ####[facility] [address] [address]Dr. Sheliaje Orr UA PROTEIN Negative Normal NEGATIVE/ TRACE [facility] Comment on above: Performed By: #### U AMIC ####[facility] [address] [address]Dr. Remberto Orr Urobilinogen Qn (U) 1.0 {Arlette'U}/dL Normal 0.2 - 1. 0 [facility] Comment on above: Performed By: #### U AMIC ####[facility] [address] [address]Dr. Remberto Orr WBC 0-2 Abnormal NONE SEEN [facility] Comment on above: Performed By: #### U AMIC ####[facility] [address] [address]Dr. Sheilaje Orr VITAMIN B12on 05-28-2022 Cobalamin (Vitamin B12) [Mass/Vol] 414.0 pg/mL Normal 193.0-986.0 [facility] Comment on above: Performed By: #### I CLEMENTINE VITB12, VITAD, FT4 ####[facility] [address] [address]Dr. Remberto Orr VITAMIN D 25 OHon 05-28-2022 VIT D 25-OH 7.4 ng/mL Normal [facility] Comment on above: Performed By: #### I CLEMENTINE, VITB12, VITAD, FT4 ####[facility] [address] [address]Dr. Remberto Orr VIT D RANGES SEE BELOW Normal [facility] Comment on above: Result Comment: <20 ng/mL Vit D deficient 20 - <30 ng/mL Vit D insufficient 30 - 100 ng/mL Vit D sufficient >100 ng/mL Potential Toxicity Performed By: #### I CLEMENTINE, VITB12, VITAD, FT4 ####[facility] [address] [address]Dr. Remberto Orr Vital Signs Date Time Vital Sign Value Performing Clinician Facility 01-10-2023 11:50-0400 Diastolic blood pressure 81 mm[Hg] Oneyda Zapata Work Phone: [facility] 01-10-2023 11:50-0400 Heart rate 49 /min Oneyda Aichholz Work Phone: [facility] 01-10-2023 11:50-0400 Respiratory rate 16 /min Oneyda Aichholz Work Phone: [facility] 01-10-2023 11:50-0400 SaO2% (BldA) [Mass fraction] 98 % Oneyda Aichholz Work Phone: [facility] 01-10-2023 11:50-0400 Systolic blood pressure 127 mm[Hg] Oneyda Aichholz Work Phone: [facility] 01-10-2023 09:17-0400 Body height 157.48 cm Oneyda Aichholz Work Phone: [facility] 01-10-2023 09:17-0400 Body temperature 98.1 [degF] Oneyda Aichholz Work Phone: [facility] 01-10-2023 09:17-0400 Body weight 72.57 kg Oneyda Aichholz Work Phone: [facility] 11-26-2022 14:45-0400 Body height 157.48 cm Imad Asaad Other [facility] Other 11-26-2022 14:45-0400 Body mass index (BMI) [Ratio] 29.63 kg/m2 Imad Asaad Other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
[2024-01-01 08:36] LABS: Basophils Percent Auto 0.3 % (0.2-2.0); Eosinophils Absolute Auto 0.1 10^3/uL (0.0-0.7); Hematocrit 36.1 % (36.0-48.0); Hemoglobin 12.3 g/dL (12.0-16.0); Immature Granulocytes Abs Auto 0.01 10^3/uL (0.00-0.03); Immature Granulocytes Pct Auto 0.2 % (0.0-0.5); Lymphocytes Absolute Auto 1.4 10^3/uL (1.2-3.8); Lymphocytes Percent Auto 22.8 % (20.5-60.0); Mean Corpuscular HGB Conc 34.1 g/dL (29.9-35.2); Mean Corpuscular Hemoglobin 29.4 pg (26.7-34.0); Mean Corpuscular Volume 86.2 fL (81.0-99.0); Mean Platelet Volume 10.5 fL (9.5-13.5); Monocytes Absolute Auto 0.4 10^3/uL (0.3-0.8); Monocytes Percent Auto 5.9 % (1.7-12.0); Neutrophils Absolute Auto 4.2 10^3/uL (1.4-6.5); Neutrophils Percent Auto 68.8 % (43.0-75.0); Platelet Count 208 10^3/uL (150-450); Red Blood Count 4.19 10^6/uL (4.20-5.40); Red Cell Distribution Width 12.5 % (11.0-15.0); White Blood Count 6.1 10^3/uL (4.0-11.0)
== END 2024-01-01 07:54 | disposition home or self-care (01) ==
LOC: LAB 07:55
PROVIDERS: PCP Nurse Practitioner; Visit Provider Nurse Practitioner
DX: D64.89 Other specified anemias (principal)
CPT/HCPCS: 36415; 82607; 82728; 83540; 85025

== ENCOUNTER 2025-02-04 15:03 | Emergency (ER) | payer OTHER, SELFPAY ==
[2025-02-04 15:09] VITALS: BP 105/66; PULSE 72; TEMP 36.8; O2SAT 99; BMI 26.2
--- NOTE | 2025-02-04 15:21 | ED.GENADUL1 ---
HPI HPI - General Adult General Chief complaint: Extremity Injury, Upper Stated complaint: BWC, metal shelf fell on hand at work Time Seen by Provider: 02/04/25 15:05 Source: patient Mode of arrival: walk-in History of Present Illness Onset (ago): hour(s) (4 hour) Location: Reports upper extremity (right fourth digit) Treatments prior to arrival: Reports other Related Data Home Medications ?Medication ?Instructions ?Recorded ?Confirmed buspirone 10 mg tablet mg 02/04/25 levothyroxine 25 mcg tablet mcg 02/04/25 Previous Rx's ?Medication ?Instructions ?Recorded cephalexin 500 mg tablet 500 mg PO QID 7 days #28 tabs 02/04/25 hydrocodone 5 mg-acetaminophen 325 1 tab PO Q8H PRN pain #14 tabs 02/04/25 mg tablet Allergies Allergy/AdvReac Type Severity Reaction Status Date / Time shell fish Allergy itching Uncoded 02/04/25 15:08 Opioid HPI Opioid Management Most Recent Opioid Data: Last Pain Scale 5 Today, 15:09 Review of Systems ROS Status of ROS 10 or more systems reviewed and unremarkable except as noted in history and below Constitutional Denies: fever or chills Eyes Denies: change in vision or blurry vision Ears, nose, mouth, and throat Denies: neck pain Cardiovascular Denies: chest pain Respiratory Denies: shortness of breath or cough Gastrointestinal Denies: abdominal pain, nausea or vomiting Genitourinary Denies: painful urination or blood in urine Musculoskeletal Reports: extremity pain; Denies: back pain or neck pain Integumentary/Breast Denies: rash Neurological Denies: headache Psychiatric Denies: anxiety Endocrine Denies: excessive urination Hematologic/Lymphatic Denies: easy bruising Allergic/Immunologic Denies: hives PFSH PFSH Social History Little interest or pleasure in doing things: not at all Feeling down, depressed, or hopeless: not at all Exam Constitutional Vital Signs, click to edit/add: Last Vital Signs Temp 98.3 F 02/04/25 15:09 Pulse 72 02/04/25 15:09 Resp 16 02/04/25 15:09 BP 105/66 02/04/25 15:09 Pulse Ox 99 02/04/25 15:09 O2 Del Method Room Air 02/04/25 15:09 Documenting provider has reviewed patient's vital signs: yes Common normals: apparent distress [facility] Common normals: normocephalic and head/scalp atraumatic Face and sinus: normal facial exam Other: neg Hemotympanum bilaterally negative septal ecchymosis bilaterally negative epistaxis Eye Common normals: PERRL and EOMs intact bilaterally Neck & C-Spine Common normals: full ROM and supple General: no tenderness Chest Chest: symmetrical chest wall rise; no localized rib tenderness with anteroposterior compression Respiratory Common normals: normal respiratory effort and clear to auscultation bilaterally Cardio Common normals: regular rate, regular rhythm, S1 normal heart sound and S2 normal heart sound GI Common normals: Normal to inspection, nondistended, normoactive bowel sounds present, soft to palpation and non-tender Back & Pelvis Common normals: no CVA tenderness, thoracic and lumbar spine normal to inspection and no thoracic nor lumbar tenderness Extremity Common normals: abnormal to inspection General: normal exam except as noted Right upper extremity: hand and digits (Bruising/3 mm laceration right fourth distal phalanx positive tender/) Other: pt retains Sensation distal to injury. Neuro Common normals: oriented x3 and no sensory deficits noted Psych Common normals: mental status grossly normal and thought process normal Course Vital Signs Vital signs: Vital Signs Temperature 98.3 F 02/04/25 15:09 Pulse Rate 72 02/04/25 15:09 Respiratory Rate 16 02/04/25 15:09 Blood Pressure 105/66 02/04/25 15:09 Pulse Oximetry 99 02/04/25 15:09 Oxygen Delivery Method Room Air 02/04/25 15:09 Temperature 98.3 F 02/04/25 15:09 Pulse Rate 72 02/04/25 15:09 Respiratory Rate 16 02/04/25 15:09 Blood Pressure 105/66 02/04/25 15:09 Pulse Oximetry 99 02/04/25 15:09 Oxygen Delivery Method Room Air 02/04/25 15:09 Medical Decision Making [facility] Narrative Medical decision making narrative: Patient has right fourth digit injury small laceration approximately 4 mm no active bleeding retains sensation distal to injury. Positive bruising to finger tenderness to intermediate and distal phalanx. Took Percocet prior to arrival. Patient states she needs tetanus booster. Will add x-ray wound care and bacitracin. Could have small tuft fracture splint applied will add Keflex 4 times daily 500 mg first dose in emergency room will add pain medication including [place]. We discussed release to work with patient we discussed she cannot drive or operate equipment taking pain medication including [place] and she may work as able with her splint in place follow-up with orthopedics and file in the occupational medicine clinic. Patient agreeable plan of care. Differential Diagnosis Differential Diagnosis: Laceration, fracture, sprain, contusion Discharge Plan Discharge Chief Complaint: Extremity Injury, Upper Clinical Impression: Laceration Fracture of finger of right hand Qualifiers: Encounter type: initial encounter Finger: ring finger Fracture type: closed Phalanx: distal Fracture alignment: nondisplaced Qualified Code(s): S62.664A - Nondisplaced fracture of distal phalanx of right ring finger, initial encounter for closed fracture Patient Disposition: Home, Self-Care Time of Disposition Decision: 16:31 Condition: Good Mode of Transportation: Private Vehicle Prescriptions / Home Meds: New hydrocodone-acetaminophen 5-325 mg tablet 1 tab PO Q8H PRN (Reason: pain) Qty: 14 0RF cephalexin 500 mg tablet 500 mg PO QID 7 Days Qty: 28 0RF No Action levothyroxine 25 mcg tablet buspirone 10 mg tablet Print Language: Urdu Instructions: Laceration (ED), Finger Fracture (ED) Additional Instructions: Follow-up with occupational medicine at [facility]. Thanks. Do not drive or operate equipment taking pain medication including [place] as it may cause drowsiness continue Keflex 4 times daily. Return to ER if any symptoms worsen or new symptoms develop. Referrals: [facility] Occupational medicine [Other] - As soon as possible Clinical Impression: Laceration; Fracture of finger of right hand Danilo Farooq DO [Physician, Orthopedics] - As soon as possible Oneyda Zapata NP [Primary Care Provider, Family Practice] - 1 week
--- NOTE | 2025-02-04 15:38 | XR_ITS ---
The [address] [address] Patient Name: DREW GARCIA MRN: [id number] date: 1985 Sex: F Assigned Patient Location: ED.MAIN Current Patient Location: ED.MAIN Accession/Order Number: [id number] Exam Date: 02/04/2025 15:35 Report Date: 02/04/2025 15:48 At the request of: LYN HAWK Procedure: XR finger RT min 2V 3 views fourth digit right hand HISTORY: Right fourth finger injury Mildly displaced tuft fracture present. XR/XR finger RT min 2V IMPRESSION: Mildly displaced tuft fracture of the right fourth finger. Impression dictated by: Luis Daniel Lagos M.D. 02/04/2025 3:48 PM Dictation Location: [place] [address] Electronically authenticated by: [id number] Date: 02/04/2025 15:48
[2025-02-04] MEDS: DIPHTH,PERTUSS(ACELL),TET VAC 0.5 ML SYRINGE IM (15:54)
[2025-02-04] MEDS: BACITRACIN 0.9 GM PACKET 1 PACKET TOPICAL (16:13)
[2025-02-04] MEDS: CEPHALEXIN 500 MG CAPSULE PO (16:17)
== END 2025-02-04 16:52 | disposition home or self-care (01) ==
PROVIDERS: Emergency Provider Student in an Organized Health Care Education/Training Program; PCP Nurse Practitioner
DX: S62.664A Nondisplaced fracture of distal phalanx of right ring finger, initial encounter for closed fracture (principal); S61.214A Laceration without foreign body of right ring finger without damage to nail, initial encounter; W22.8XXA Striking against or struck by other objects, initial encounter; Z23 Encounter for immunization
CPT/HCPCS: 29130; 73140; 90715; 99284

== ENCOUNTER 2025-02-09 09:08 | Outpatient (OUT) | payer OTHER, SELFPAY ==
--- OUTSIDE RECORDS SUMMARY | 2025-02-09 09:25 | XMS_ITS | CCD ---
Author Organization [facility] Care Team Providers Care Service Desk Team Lead Name Role Phone AICHHOLZ, WELD LAY OUT WORKER ONEYDA Admitting Unavailable AICHHOLZ, WELD LAY OUT WORKER ONEYDA Attending Unavailable AICHHOLZ, WELD LAY OUT WORKER ONEYDA Consulting Unavailable AICHHOLZ, WELD LAY OUT WORKER ONEYDA Primary Care Unavailable AICHHOLZ, WELD LAY OUT WORKER ONEYDA Primary Care Unavailable AICHHOLZ, WELD LAY OUT WORKER ONEYDA Admitting Unavailable AICHHOLZ, WELD LAY OUT WORKER ONEYDA Attending Unavailable AICHHOLZ, WELD LAY OUT WORKER ONEYDA Consulting Unavailable AICHHOLZ, WELD LAY OUT WORKER ONEYDA Admitting Unavailable AICHHOLZ, WELD LAY OUT WORKER ONEYDA Attending Unavailable AICHHOLZ, WELD LAY OUT WORKER ONEYDA Consulting Unavailable AICHHOLZ, WELD LAY OUT WORKER ONEYDA Primary Care Unavailable AICHHOLZ, WELD LAY OUT WORKER ONEYDA Admitting Unavailable AICHHOLZ, WELD LAY OUT WORKER ONEYDA Attending Unavailable AICHHOLZ, WELD LAY OUT WORKER ONEYDA Consulting Unavailable AICHHOLZ, WELD LAY OUT WORKER ONEYDA Primary Care Unavailable BLAIR CHESTER Consulting Unavailable Asaad, Imad Unavailable MD Arleen Imamy Attending Provider [phone] Oneyda Zapata Primary Care Provider Oneyda Zapata Primary Care Unavailable Asaad, Imad Admitting Unavailable Asaad, Imad Attending Unavailable Oneyda Zapata Primary Care Unavailable Asaad, Imad Admitting Unavailable Asaad, Imad Attending Unavailable Anuel Crawford MD Primary Care Provider Oneyda Zapata NP Unavailable ONEYDA ZAPATA Attending Unavailable JODI, ONEYDA Attending Unavailable PRASANTHHHOLAngela, ONEYDA Attending Unavailable AICHHOLZ, ONEYDA Attending Unavailable Allergies Allergy Classification Reported Allergen(s) Allergy Type Date of Onset Reaction(s) Facility (1 source) Shellfish Drug allergy (disorder) 5 [facility] Repository (2 sources) Shellfish Propensity to adverse reactions anaphylaxis [facility] Other (1 source) Shrimp product Drug allergy (disorder) 3 [facility] Repository (13 sources) Shrimp product Drug Allergy 3 Other [facility] Healthcare (13 sources) Wound Dressing Adhesive Propensity to adverse reactions 4 [facility] Healthcare (13 sources) Shellfish-Deriv ed Products Drug Allergy 4 Other [facility] Healthcare Work Phone: Medications Current Medications Medication Drug Class(es) Dates Sig (Normalized) Sig (Original) busPIRone hydrochloride 10 mg oral tablet (20 sources) Start: 05-31-2024 End: 12-03-2024 take 1 tablet by mouth in the morning busPIRone (Buspar) 10 MG tablet Indications: Anxiety and depression Take 1 tablet (10 mg) by mouth in the morning and 1 tablet (10 mg) before bedtime. 60 tablet 3 11/03/2024 Active Start: 11-27-2023 take 1 tablet by chi th in the morning busPIRone (Buspar) 10 MG tablet Indications: Anxiety and depression (CMS/HCC) Take 1 tablet (10 mg) by mouth in the morning and 1 tablet (10 mg) before bedtime. 60 tablet 2 11/27/2023 Active Start: 01-10-2023 take 5 mg by mouth once daily Buspirone Active 5 MG PO Daily January 10, 2023 12:00am take 1 tablet by chi th every twelve hours busPIRone HCl 5 MG 1 tablet Orally Twice a day Active dicyclomine hydrochloride 10 mg oral capsule (11 sources) Anticholinergic Start: 05-27-2024 take 1 capsule by mouth every eight hours as needed dicyclomine (Bentyl) 10 MG capsule Take 10 mg by mouth every 8 (eight) hours if needed (abd cramping) 05/27/2024 Active Start: 01-27-2024 End: 02-26-2024 take 1 capsule by mouth every eight hours dicyclomine (Bentyl) 10 MG capsule Indications: Generalized abdominal pain Take 1 capsule (10 mg) by mouth every 8 (eight) hours if needed (abd cramping) 90 capsule 1 01/27/2024 02/26/2024 Active levothyroxine sodium 0.025 mg oral tablet (20 sources) l-Thyroxine Start: 05-25-2024 End: 12-03-2024 take 1 tablet by mouth before mealtime levothyroxine (Synthroid, Levoxyl) 25 MCG tablet Indications: Hypothyroidism (acquired) Take 1 tablet (25 mcg) by mouth in the morning. Take before meals. 30 tablet 3 11/03/2024 Active Start: 10-28-2023 take 1 tablet by chi th before mealtime levothyroxine (Synthroid, Levoxyl) 25 MCG tablet Indications: Hypothyroidism (acquired) (CMS/HCC) Take 1 tablet (25 mcg) by mouth in the morning. Take before meals. 30 tablet 3 10/28/2023 Active Start: 01-10-2023 take 25 ug by mouth once daily Levothyroxine Active 25 MCG PO Daily January 10, 2023 12:00am Levothyroxine So dium Active polyethylene glycol 3350 482920 mg / potassium chloride 2970 mg / sodium bicarbonate 6740 mg / sodium chloride 5860 mg / sodium sulfate 25009 mg powder for oral solution (2 sources) Osmotic Laxative Start: 11-26-2022 PEG-3350/Elec trolytes 236 GM as directed Orally once a day for 1 days Oct, Active Vitamin D (2 sources) Vitamin D 2500 M G Active Problems Active Problems Problem Classification Problem Date Documented Da te Episodic/Chronic Anxiety disorders (20 sources) Mixed anxiety and depressive disorder; Translations: [Anxiety disorder, unspecified] Onset: 4 10-02-2023 Chronic Disorders of lipid metabolism (8 sources) Mixed hyperlipidemia; Translations: [Mixed hyperlipidemia] Onset: 5 11-03-2024 Chronic Esophageal disorders (15 sources) Gastroesophageal reflux disease without esophagitis; Translations: [Gastro-esophageal reflux disease without esophagitis] Onset: 4 10-02-2023 Chronic Nutritional deficiencies (19 sources) Vitamin D deficiency, unspecified; Translations: [Vitamin D deficiency] Onset: 3 Chronic Other gastrointestinal disorders (2 sources) Diarrhea; Translations: [Diarrhea, unspecified] Episodic Other gastrointestinal disorders (2 sources) Diarrhea, unspecified; Translations: [Diarrhea, unspecified] Onset: 3 Episodic Other gastrointestinal disorders (9 sources) Constipation; Translations: [Other constipation] Onset: 5 11-03-2024 Episodic Other nutritional; endocrine; and metabolic disorders (7 sources) Abnormal weight loss; Translations: [ABNORMAL WEIGHT LOSS] Onset: 2 Episodic Other nutritional; endocrine; and metabolic disorders (2 sources) Weight loss; Translations: [Abnormal weight loss] Episodic Residual codes; unclassified (19 sources) Tobacco user; Translations: [Tobacco use] Onset: 4 11-27-2023 Episodic Thyroid disorders (20 sources) Hypothyroidism, unspecified; Translations: [Acquired hypothyroidism] Onset: 3 09-24-2023 Chronic Past or Other Problems Problem Classification Problem Date Documented Da te Episodic/Chronic Abdominal pain (16 sources) Unspecified abdominal pain; Translations: [Generalized abdominal pain] Onset: 01-10-2023 Episodic Deficiency and other anemia (15 sources) Anemia; Translations: [Other specified anemias] Onset: 10-12-2023 10-12-2023 Episodic Nonmalignant breast conditions (14 sources) Breast tenderness; Translations: [Mastodynia] Onset: 01-27-2024 01-27-2024 Episodic Other screening for suspected conditions (not mental [...] on 01-10-2023 Amphetamines Ql (U) Negative Negative [facility] Barbiturates [Presence] in U rine by Screen methodOrdered By: Angeli Bacon on 01-10-2023 Barbiturates Screen Ql (U) Negative Negative [facility] Benzodiazepines Screen Ql (U )Ordered By: Angeli Bacon on 01-10-2023 Benzodiazepines Ql (U) Negative Negative [facility] Benzoylecgonine [Presence] i n Urine by Screen methodOrdered By: Angeli Bacon on 01-10-2023 Benzoylecgonine Screen Ql (U) Negative Negative [facility] Cannabinoids [Presence] in U rine by Screen methodOrdered By: Angeli Bacon on 01-10-2023 Cannabinoids Screen Ql (U) Positive Negative [facility] Comment on above: These are unconfirme d results and should not be used for legal purposes. Drug Cut-Off Concentration: AMPH 1000 ng/mL TABITHA 200 ng/mL MAAME 200 ng/mL COCM 300 ng/mL OP 300 ng/mL PCP 25 ng/mL THC 20 ng/mL Drug Screen,Urineon 01-11-20 23 Amphetamine Screen,Urine Negative Normal Negative [facility] Comment on above: Performed By: #### H IV SCREEN, CELIAC #### [facility] , #### TSH3, HEPATIC, CBC, CRP, LIPASE, ESR #### [facility] [address] [place] [address] Barbiturate Screen,Urine Negative Normal Negative [facility] Comment on above: Performed By: #### H IV SCREEN, CELIAC #### [facility] , #### TSH3, HEPATIC, CBC, CRP, LIPASE, ESR #### [facility] [address] [place] [address] [place] Benzodiazepines Screen,Urine Negative Normal Negative [facility] Comment on above: Performed By: #### H IV SCREEN, CELIAC #### [facility] , #### TSH3, HEPATIC, CBC, CRP, LIPASE, ESR #### [facility] [address] [place] [address] [place] Cannabinoid Screen,Urine Positive High Negative [facility] Comment on above: Result Comment: Thes e are unconfirmed results and should not be used for legal purposes. Drug Cut-Off Concentration: AMPH 1000 ng/mL TABITHA 200 ng/mL MAAME 200 ng/mL COCM 300 ng/mL OP 300 ng/mL PCP 25 ng/mL THC 20 ng/mL PERFORMED BY: [place] [address] PATHOLOGIST [employer] BRITTANY WATT M.D. Performed By: #### H IV SCREEN, CELIAC #### [facility] , #### TSH3, HEPATIC, CBC, CRP, LIPASE, ESR #### [facility] [address] [place] [address] Cocaine Screen,Urine Negative Normal Negative [facility] Comment on above: Performed By: #### H IV SCREEN, CELIAC #### [facility] , #### TSH3, HEPATIC, CBC, CRP, LIPASE, ESR #### [facility] [address] [place] [address] Opiate Screen,Urine Negative Normal Negative [facility] Comment on above: Performed By: #### H IV SCREEN, CELIAC #### [facility] , #### TSH3, HEPATIC, CBC, CRP, LIPASE, ESR #### [facility] [address] [place] [address] Phencyclidine Screen,Urine Negative Normal Negative [facility] Comment on above: Performed By: #### H IV SCREEN, CELIAC #### [facility] , #### TSH3, HEPATIC, CBC, CRP, LIPASE, ESR #### [facility] [address] [place] [address] HCG ( test) IA.rapi d Ql (U)Ordered By: Angeli Bacon on 01-10-2023 HCG ( test) Ql (U) Negative [facility] HCG,Urineon 01-10-2023 Beta HCG ( test) Ql (U) Negative Normal [facility] Comment on above: Result Comment: PERF ORMED BY: [place] [address] PATHOLOGIST [employer]IVER BRITTANY WATT M.D. Performed By: #### H IV SCREEN, CELIAC #### [facility] , #### TSH3, HEPATIC, CBC, CRP, LIPASE, ESR #### [facility] [address] [place] [address] Jesse 01-10-2023 L - -------- Specimen: [id number] Received: 01/10/23 Status: ROLAN Mckinney Num: [id number] Spec Type: Surgical Subm Dr: Angeli Bacon MD Tissues: A Duodenum - Biopsy (DUODENAL BX) B GASTRIC FOR HP (GASTRIC BX HP) C Colon Biopsy (RANDOM COLON BX) Procedures: HE/6, Gross/Micro L4/3, H PYLORI -------- Age/ Patient Sex Location Account Attending Physician -------- Marilee Galindo 37/F [id number] Angeli Bacon MD -------- SPEC NUM: [id number] RECD: 01/10/23 STATUS: ROLAN MCKINNEY NUM: [id number] JESSICA: 01/10/23- SUBM DR: Angeli Bacon MD ENTERED: 01/10/23-12[address] [facility] DR: SPEC TYPE: Surgical DEPT: S ORDERED: HE/6, Gross/Micro [...] features of microscopic colitis identified -------- Specimen: [id number] Received: 01/10/23 Status: ROLAN Mckinney Num: [id number] Spec Type: Surgical Subm Dr: Angeli Bacon MD Tissues: A Duodenum - Biopsy (DUODENAL BX) B GASTRIC FOR HP (GASTRIC BX HP) C Colon Biopsy (RANDOM COLON BX) Procedures: HE/6, Gross/Micro L4/3, H PYLORI -------- Patient: Marilee Galindo [id number] (Continued) -------- Specimen: [id number] Received: 01/10/23 (Continued) Signed (signature on file) Aime Orr MD 01/13/231915 -------- Specimen: [id number] Received: 01/10/23 Status: ROLAN Garcíaara Num: [id number] Spec Type: Surgical Subm Dr: Angeli Bacon MD Tissues: A Duodenum - Biopsy (DUODENAL BX) B GASTRIC FOR HP (GASTRIC BX HP) C Colon Biopsy (RANDOM COLON BX) Procedures: HE/6, Gross/Micro L4/3, H PYLORI -------- Patient: Marilee Galindo [id number] (Continued) -------- Specimen: [id number] Received: 01/10/23 (Continued) Clinical Information Abdomen pain, weight loss, [...] microscopic examination confirms the diagnosis. CPT Codes 99270j7, 14289 -------- -------- Specimen: [id number] Received: 01/10/23 Status: (more content not included)... Normal [facility] Opiates [Presence] in Urine by Screen methodOrdered By: Imad Asaad on 01-10-2023 Opiates Screen Ql (U) Negative Negative [facility] Phencyclidine Screen Ql (U)O rdered By: Imad Asaad on 01-10-2023 Phencyclidine Ql (U) Negative Negative [facility] Alanine aminotransferase [En zymatic activity/volume] in Serum or PlasmaOrdered By: Imad Asaad on 12-04-2022 ALT [Catalytic activity/Vol] 12 U/L 7-52 [facility] Albumin [Mass/volume] in Ser um or Plasma by Bromocresol green (BCG) dye binding methoOrdered By: Imad Asaad on 12-04-2022 Albumin BCG dye [Mass/Vol] 4.4 g/dL 3.5-5.7 [facility] Alkaline phosphatase [Enzyma tic activity/volume] in Serum or PlasmaOrdered By: Imad Asaad on 12-04-2022 ALP [Catalytic activity/Vol] 48 U/L 34-104 [facility] Aspartate aminotransferase [ Enzymatic activity/volume] in Serum or PlasmaOrdered By: Imad Asaad on 12-04-2022 AST [Catalytic activity/Vol] 14 U/L 13-39 [facility] Basophils Auto (Bld) [#/Vol] Ordered By: Imad Asaad on 12-04-2022 Basophils (Bld) [#/Vol] 0.1 10*3/uL 0.0-0.2 [facility] Basophils/100 WBC Auto (Bld) Ordered By: Imad Asaad on 12-04-2022 Basophils/100 WBC (Bld) 0.8 % . F [facility] Bilirubin.direct [Mass/volum e] in Serum or PlasmaOrdered By: Imad Asaad on 12-04-2022 Bilirubin.direct [Mass/Vol] 0.10 mg/dL 0.03-0.18 [facility] Bilirubin.total [Mass/volume ] in Serum or PlasmaOrdered By: Imad Asaad on 12-04-2022 Bilirubin [Mass/Vol] 0.9 mg/dL 0.3-1.[address] [facility] C reactive protein [Mass/vol ume] in Serum or PlasmaOrdered By: Angeli Bacon on 12-04-2022 CRP [Mass/Vol] < 0.5 mg/dL 0.0-0.5 [facility] C-Reactive Proteinon 023 CRP [Mass/Vol] mg/L Normal 0.0-0.5 [facility] Comment on above: Order Comment: Reaso n for Exam Diarrhea Performed By: #### H IV SCREEN, CELIAC #### [facility] , #### TSH3, HEPATIC, CBC, CRP, LIPASE, ESR #### [facility] [address] abdomen pelvis w conon CT abdomen pelvis w con [facility] [address] [address] [place] [address] CT Scan Report Signed Patient: Marilee Galindo MR#: [id number] : 1985 Acct:[id number] Age/Sex: 37 / F ADM Date: 12/04/22 Loc: CT Room: Type: [facility] Attending Dr: Angeli Bacon MD Copies to: [...] findings. Impression dictated by: Roland Piper Jr., D.OSky12/04/2022 4:33 PM Dictation Location: [place] [address] Transcribed By: [facility] 12/04/22 1633 Dictated By: Roland Piper Jr DO 12/04/22 1628 Signed By: 12/04/22 1633 Normal [facility] Celiacon 12-04-2022 Deamidated Gliadin Abs, IgA 4 Normal 0-19 [facility] Comment on above: Order Comment: Reaso n for Exam Diarrhea Result Comment: Nega tive 0 - 19 Weak Positive 20 - 30 Moderate to Strong Positive >30 Performed By: #### H IV SCREEN, CELIAC #### [facility] , #### TSH3, HEPATIC, CBC, CRP, LIPASE, ESR #### [facility] [address] [place] [address] [place] Deamidated Gliadin Abs, IgG 7 Normal 0-19 [facility] Comment on above: Order Comment: Reaso n for Exam Diarrhea Result Comment: Nega tive 0 - 19 Weak Positive 20 - 30 Moderate to Strong Positive >30 Performed By: #### H IV SCREEN, CELIAC #### [facility] , #### TSH3, HEPATIC, CBC, CRP, LIPASE, ESR #### [facility] [address] [place] [address] [place] Endomysial Antibody IgA Negative Normal Negative [facility] Comment on above: Order Comment: Reaso n for Exam Diarrhea Performed By: #### H IV SCREEN, CELIAC #### [facility] , #### TSH3, HEPATIC, CBC, CRP, LIPASE, ESR #### [facility] [address] [place] [address] [place] Immunoglobulin A, Qn, Serum 82 mg/dL Low 87-352 [facility] Comment on above: Order Comment: Reaso n for Exam Diarrhea Result Comment: Perf ormed at: CB - [facility] [place] [id number] Release And Technical Records Clerk: Tj Jean PhD, Phone: [phone] Performed By: #### H IV SCREEN, CELIAC #### [facility] , #### TSH3, HEPATIC, CBC, CRP, LIPASE, ESR #### [address] T-Transglutaminase (tTG) IgA <2 Normal 0-3 [facility] Comment on above: Order Comment: Reaso n [...] TSH3, HEPATIC, CBC, CRP, LIPASE, ESR #### [address] T-Transglutaminase (tTG) IgG 3 Normal 0-5 [facility] Comment on above: Order Comment: Reaso n for Exam Diarrhea Result Comment: Nega tive 0 - 5 Weak Positive 6 - 9 Positive >9 Performed By: #### H IV SCREEN, CELIAC #### [facility] , #### TSH3, HEPATIC, CBC, CRP, LIPASE, ESR #### [address] Complete Blood Count Auto Di ffon 12-04-2022 Basophils (Bld) [#/Vol] 0.1 10*3/uL Normal 0.0-0.2 [facility] Comment on above: Order Comment: Reaso n for Exam Diarrhea Performed By: #### H IV SCREEN, CELIAC #### [facility] , #### TSH3, HEPATIC, CBC, CRP, LIPASE, ESR #### [address] Basophils/100 WBC (Bld) 0.8 % Normal . [facility] Comment on above: Order Comment: Reaso n for Exam Diarrhea Performed By: #### H IV SCREEN, CELIAC #### [facility] , #### TSH3, HEPATIC, CBC, CRP, LIPASE, ESR #### [address] Eosinophils (Bld) [#/Vol] 0.2 10*3/uL Normal 0.0-0.45 [facility] Comment on above: Order Comment: Reaso n for Exam Diarrhea Performed By: #### H IV SCREEN, CELIAC #### [facility] , #### TSH3, HEPATIC, CBC, CRP, LIPASE, ESR #### [address] Eosinophils/100 WBC (Bld) 2.1 % Normal . [facility] Comment on above: Order Comment: Reaso n for Exam Diarrhea Performed By: #### H IV SCREEN, CELIAC #### [facility] , #### TSH3, HEPATIC, CBC, CRP, LIPASE, ESR #### [address] Erythrocyte distribution width (RBC) [Ratio] 13.3 % Normal 11.9-15.3 [facility] Comment on above: Order Comment: Reaso n for Exam Diarrhea Performed By: #### H IV SCREEN, CELIAC #### [facility] , #### TSH3, HEPATIC, CBC, CRP, LIPASE, ESR #### [address] Hematocrit (Bld) [Volume fraction] 37.0 % Normal 34.0-46.4 [facility] Comment on above: Order Comment: Reaso n for Exam Diarrhea Performed By: #### H IV SCREEN, CELIAC #### [facility] , #### TSH3, HEPATIC, CBC, CRP, LIPASE, ESR #### [address] Hemoglobin (Bld) [Mass/Vol] 12.7 g/dL Normal 11.8-15.4 [facility] Comment on above: Order Comment: Reaso n for Exam Diarrhea Performed By: #### H IV SCREEN, CELIAC #### [facility] , #### TSH3, HEPATIC, CBC, CRP, LIPASE, ESR #### [address] Lymphocytes (Bld) [#/Vol] 2.0 10*3/uL Normal 1.00-4.8 [facility] Comment on above: Order Comment: Reaso n for Exam Diarrhea Performed By: #### H IV SCREEN, CELIAC #### [facility] , #### TSH3, HEPATIC, CBC, CRP, LIPASE, ESR #### [address] Lymphocytes/100 WBC (Bld) 27.8 % Normal . [facility] Comment on above: Order Comment: Reaso n for Exam Diarrhea Performed By: #### H IV SCREEN, CELIAC #### [facility] , #### TSH3, HEPATIC, CBC, CRP, LIPASE, ESR #### [address] MCH (RBC) [Entitic mass] 28.2 pg Normal 24.7-34.3 [facility] Comment on above: Order Comment: Reaso n for Exam Diarrhea Performed By: #### H IV SCREEN, CELIAC #### [facility] , #### TSH3, HEPATIC, CBC, CRP, LIPASE, ESR #### [address] MCV (RBC) [Entitic vol] 82.4 fL Normal 80-100 [facility] Comment on above: Order Comment: Reaso n for Exam Diarrhea Performed By: #### H IV SCREEN, CELIAC #### [facility] , #### TSH3, HEPATIC, CBC, CRP, LIPASE, ESR #### [address] Mean Corpuscular HGB Conc 34.3 g/dL Normal 32.0-35.0 [facility] Comment on above: Order Comment: Reaso n for Exam Diarrhea Performed By: #### H IV SCREEN, CELIAC #### [facility] , #### TSH3, HEPATIC, CBC, CRP, LIPASE, ESR #### [facility] [address] [place] [address] [place] Monocytes (Bld) [#/Vol] 0.5 10*3/uL Normal 0.0-0.8 [facility] Comment on above: Order Comment: Reaso n for Exam Diarrhea Performed By: #### H IV SCREEN, CELIAC #### [facility] , #### TSH3, HEPATIC, CBC, CRP, LIPASE, ESR #### [facility] [address] [place] [address] [place] Monocytes/100 WBC (Bld) 6.4 % Normal . [facility] Comment on above: Order Comment: Reaso n for Exam Diarrhea Performed By: #### H IV SCREEN, CELIAC #### [facility] , #### TSH3, HEPATIC, CBC, CRP, LIPASE, ESR #### [facility] [address] [place] [address] [place] Neutrophils (Bld) [#/Vol] 4.5 10*3/uL Normal 1.8-7.7 [facility] Comment on above: Order Comment: Reaso n for Exam Diarrhea Performed By: #### H IV SCREEN, CELIAC #### [facility] , #### TSH3, HEPATIC, CBC, CRP, LIPASE, ESR #### [facility] [address] [place] [address] [place] Neutrophils/100 WBC (Bld) 62.9 % Normal . [facility] Comment on above: Order Comment: Reaso n for Exam Diarrhea Performed By: #### H IV SCREEN, CELIAC #### [facility] , #### TSH3, HEPATIC, CBC, CRP, LIPASE, ESR #### [facility] [address] [place] [address] [place] NRBC% 0.1 /100{WBC} Normal 0-0.5 [facility] Comment on above: Order Comment: Reaso n for Exam Diarrhea Performed By: #### H IV SCREEN, CELIAC #### [facility] , #### TSH3, HEPATIC, CBC, CRP, LIPASE, ESR #### [facility] [address] [place] [address] Platelet mean volume (Bld) [Entitic vol] 8.9 fL Normal 6.3-10.7 [facility] Comment on above: Order Comment: Reaso n for Exam Diarrhea Performed By: #### H IV SCREEN, CELIAC #### [facility] , #### TSH3, HEPATIC, CBC, CRP, LIPASE, ESR #### [facility] [address] [place] [address] Platelets (Bld) [#/Vol] 197 10*3/uL Normal 150-450 [facility] Comment on above: Order Comment: Reaso n for Exam Diarrhea Performed By: #### H IV SCREEN, CELIAC #### [facility] , #### TSH3, HEPATIC, CBC, CRP, LIPASE, ESR #### [facility] [address] [place] [address] RBC (Bld) [#/Vol] 4.49 10*6/uL Normal 3.60-5.00 [facility] Comment on above: Order Comment: Reaso n for Exam Diarrhea Performed By: #### H IV SCREEN, CELIAC #### [facility] , #### TSH3, HEPATIC, CBC, CRP, LIPASE, ESR #### [facility] [address] [place] [address] WBC (Bld) [#/Vol] 7.2 10*3/uL Normal 3.8-11.6 [facility] Comment on above: Order Comment: Reaso n for Exam Diarrhea Performed By: #### H IV SCREEN, CELIAC #### [facility] , #### TSH3, HEPATIC, CBC, CRP, LIPASE, ESR #### [facility] [address] Eosinophils Auto (Bld) [#/Vo l]Ordered By: Imad Asaad on 12-04-2022 Eosinophils (Bld) [#/Vol] 0.2 10*3/uL 0.0-0.45 [facility] Eosinophils/100 WBC Auto (Bl d)Ordered By: Imad Asaad on 12-04-2022 Eosinophils/100 WBC (Bld) 2.1 % . [facility] Erythrocyte Sedimentation Ra cary 12-04-2022 ESR (Bld) [Velocity] 2 mm/h Normal 0-[address] [facility] Comment on above: Order Comment: Reaso n for Exam Diarrhea Result Comment: PERF ORMED BY: [place] [address] PATHOLOGIST CPR AMBULANCE DRIVER BRITTANY WATT M.D. Performed By: #### H IV SCREEN, CELIAC #### [facility] , #### TSH3, HEPATIC, CBC, CRP, LIPASE, ESR #### [facility] [address] Erythrocyte distribution wid th Auto (RBC) [Ratio]Ordered By: Imad Asaad on 12-04-2022 Erythrocyte distribution width (RBC) [Ratio] 13.3 % 11.9-15.3 [facility] Erythrocyte sedimentation ra te by Photometric methodOrdered By: Imad Asaad on 12-04-2022 ESR Photometric method (Bld) [Velocity] 2 mm/hr 0-19 [facility] Globulin Calc (S) [Mass/Vol] Ordered By: Imad Asaad on 12-04-2022 Globulin (S) [Mass/Vol] 2.0 g/dL [facility] HIV 1/O/2 Antigen/Antibodyon 12-04-2022 HIV Screen 4th Generation Non-Reactive Normal Non Reactive [facility] Comment on above: Order Comment: Reaso n for Exam Diarrhea Result Comment: HIV Negative HIV-1/HIV-2 antibodies and HIV-1 p24 antigen were NOT detected. There is no laboratory evidence of HIV infection. Performed at: [address] [id number] Release And Technical Records Clerk: Tj Jean PhD, Phone: [phone] PERFORMED BY: [place] [address] PATHOLOGIST CPR AMBULANCE DRIVER BRITTANY WATT M.D. Performed By: #### H IV SCREEN, CELIAC #### [facility] , #### TSH3, HEPATIC, CBC, CRP, LIPASE, ESR #### [facility] [address] [place] [address] HIV 1 and HIV-2 antibody ass ay with HIV-1 p24 antigen detectionOrdered By: Imad Asaad on 12-04-2022 HIV 1+2 Ab+HIV1 p24 Ag IA Ql Non-Reactive Non Reactive [facility] Comment on above: HIV NegativeHIV-1/HI V-2 antibodies and HIV-1 p24 antigen were NOTdetected. There is no laboratory evidence of HIV infection.Performed at: - [facility] [address] [id number] Director: Tj Jean PhD, Phone: [phone] Hematocrit Auto (Bld) [Volum e fraction]Ordered By: Imad Asaad on 12-04-2022 Hematocrit (Bld) [Volume fraction] 37.0 % 34.0-46.4 [facility] Hemoglobin [Mass/volume] in BloodOrdered By: Imad Asaad on 12-04-2022 Hemoglobin (Bld) [Mass/Vol] 12.7 g/dL 11.8-15.4 [facility] Hepatic Panelon 12-04-2022 Albumin [Mass/Vol] 4.4 g/dL Normal 3.5-5.7 [facility] Comment on above: Order Comment: Reaso n for Exam Diarrhea Performed By: #### H IV SCREEN, CELIAC #### [facility] , #### TSH3, HEPATIC, CBC, CRP, LIPASE, ESR #### [facility] [address] [place] [address] Albumin/Globulin [Mass ratio] 2.2 {ratio} Normal [facility] Comment on above: Order Comment: Reaso n for Exam Diarrhea Performed By: #### H IV SCREEN, CELIAC #### [facility] , #### TSH3, HEPATIC, CBC, CRP, LIPASE, ESR #### [facility] [address] ALP [Catalytic activity/Vol] 48 U/L Normal 34-104 [facility] Comment on above: Order Comment: Reaso n for Exam Diarrhea Performed By: #### H IV SCREEN, CELIAC #### [facility] , #### TSH3, HEPATIC, CBC, CRP, LIPASE, ESR #### [facility] [address] [place] [address] [place] ALT [Catalytic activity/Vol] 12 U/L Normal 7-52 [facility] Comment on above: Order Comment: Reaso n for Exam Diarrhea Performed By: #### H IV SCREEN, CELIAC #### [facility] , #### TSH3, HEPATIC, CBC, CRP, LIPASE, ESR #### [facility] [address] [place] [address] [place] AST [Catalytic activity/Vol] 14 U/L Normal 13-39 [facility] Comment on above: Order Comment: Reaso n for Exam Diarrhea Performed By: #### H IV SCREEN, CELIAC #### [facility] , #### TSH3, HEPATIC, CBC, CRP, LIPASE, ESR #### [facility] [address] [place] [address] [place] Bilirubin [Mass/Vol] 0.9 mg/dL Normal 0.3-1.[address] [facility] Comment on above: Order Comment: Reaso n for Exam Diarrhea Performed By: #### H IV SCREEN, CELIAC #### [facility] , #### TSH3, HEPATIC, CBC, CRP, LIPASE, ESR #### [facility] [address] [place] [address] [place] Bilirubin,Indirect 0.8 mg/dL Normal [facility] Comment on above: Order Comment: Reaso n for Exam Diarrhea Performed By: #### H IV SCREEN, CELIAC #### [facility] , #### TSH3, HEPATIC, CBC, CRP, LIPASE, ESR #### [facility] [address] Bilirubin.indirect [Mass/Vol] 0.10 mg/dL Normal 0.03-0.18 [facility] Comment on above: Order Comment: Reaso n for Exam Diarrhea Performed By: #### H IV SCREEN, CELIAC #### [facility] , #### TSH3, HEPATIC, CBC, CRP, LIPASE, ESR #### [facility] [address] Globulin (S) [Mass/Vol] 2.0 g/dL Normal [facility] Comment on above: Order Comment: Reaso n for Exam Diarrhea Performed By: #### H IV SCREEN, CELIAC #### [facility] , #### TSH3, HEPATIC, CBC, CRP, LIPASE, ESR #### [facility] [address] Protein [Mass/Vol] 6.4 g/dL Normal 6.4-8.9 [facility] Comment on above: Order Comment: Reaso n for Exam Diarrhea Performed By: #### H IV SCREEN, CELIAC #### [facility] , #### TSH3, HEPATIC, CBC, CRP, LIPASE, ESR #### [facility] [address] [place] [address] IgA [Mass/volume] in Serum o r PlasmaOrdered By: Imad Asaad on 12-04-2022 IgA [Mass/Vol] 82 mg/dL 87-352 [facility] Comment on above: Performed at: [address] [id number] Director: Tj Jean PhD, Phone: [phone] Leukocytes [#/volume] correc cassidy for nucleated erythrocytes in Blood by Automated counOrdered By: Imad Asaad on 12-04-2022 WBC corrected for nucl RBC Auto (Bld) [#/Vol] 7.2 10*3/uL 3.8-11.6 [facility] Lipaseon 12-04-2022 Lipase [Catalytic activity/Vol] 16.0 U/L Normal 11.0-82.0 [facility] Comment on above: Order Comment: Reaso n for Exam Diarrhea Performed By: #### H IV SCREEN, CELIAC #### [facility] , #### TSH3, HEPATIC, CBC, CRP, LIPASE, ESR #### [facility] [address] Lipase [Enzymatic activity/v olume] in Serum or PlasmaOrdered By: Imad Asaad on 12-04-2022 Lipase [Catalytic activity/Vol] 16.0 U/L 11.0-82.0 [facility] Lymphocytes Auto (Bld) [#/Vo l]Ordered By: Imad Asaad on 12-04-2022 Lymphocytes (Bld) [#/Vol] 2.0 10*3/uL 1.00-4.8 [facility] Lymphocytes/100 WBC Auto (Bl d)Ordered By: Imad Asaad on 12-04-2022 Lymphocytes/100 WBC (Bld) 27.8 % . [facility] MCH Auto (RBC) [Entitic mass ]Ordered By: Imad Asaad on 12-04-2022 MCH (RBC) [Entitic mass] 28.2 pg 24.7-34.3 [facility] MCHC Auto (RBC) [Mass/Vol]Or dered By: Imad Asaad on 12-04-2022 MCHC (RBC) [Mass/Vol] 34.3 g/dL 32.0-35.0 [facility] MCV Auto (RBC) [Entitic vol] Ordered By: Imad Asaad on 12-04-2022 MCV (RBC) [Entitic vol] 82.4 fL 80-100 [facility] Monocytes Auto (Bld) [#/Vol] Ordered By: Imad Asaad on 12-04-2022 Monocytes (Bld) [#/Vol] 0.5 10*3/uL 0.0-0.8 [facility] Monocytes/100 WBC Auto (Bld) Ordered By: Imad Asaad on 12-04-2022 Monocytes/100 WBC (Bld) 6.4 % . [facility] Neutrophils Auto (Bld) [#/Vo l]Ordered By: Imad Asaad on 12-04-2022 Neutrophils (Bld) [#/Vol] 4.5 10*3/uL 1.8-7.7 [facility] Neutrophils/100 WBC Auto (Bl d)Ordered By: Imad Asaad on 12-04-2022 Neutrophils/100 WBC (Bld) 62.9 % . [facility] No Panel InformationOrdered By: Imad Asaad on 12-04-2022 Endomysial IgA Antibody Negative Negative [facility] Nucleated erythrocytes [Pres ence] in Blood by Automated countOrdered By: Imad Asaad on 12-04-2022 Nucleated RBC Auto Ql (Bld) 0.1 /100{WBC} 0-0.5 [facility] Platelet mean volume Auto (B ld) [Entitic vol]Ordered By: Imad Asaad on 12-04-2022 Platelet mean volume (Bld) [Entitic vol] 8.9 fL 6.3-10.7 [facility] Platelets Auto (Bld) [#/Vol] Ordered By: Imad Asaad on 12-04-2022 Platelets (Bld) [#/Vol] 197 10*3/uL 150-450 [facility] Protein [Mass/volume] in Ser um or PlasmaOrdered By: Imad Asaad on 12-04-2022 Protein [Mass/Vol] 6.4 g/dL 6.4-8.9 [facility] RBC Auto (Bld) [#/Vol]Ordere d By: Imad Asaad on 12-04-2022 RBC (Bld) [#/Vol] 4.49 10*6/uL 3.60-5.00 [facility] Serum gliadin peptide IgA an tibody assay (units/volume)Ordered By: Imad Asaad on 12-04-2022 Gliadin peptide IgA Qn (S) 4 units 0-19 [facility] Comment on above: Negative 0 - 19 Weak Positive 20 - 30 Moderate to Strong Positive >30 Serum gliadin peptide IgG an tibody assay (units/volume)Ordered By: Imad Asaad on 12-04-2022 Gliadin peptide IgG Qn (S) 7 units 0-19 [facility] Comment on above: Negative 0 - 19 Weak Positive 20 - 30 Moderate to Strong Positive >30 Serum or plasma albumin/glob ulin mass ratioOrdered By: [facility] on 12-04-2022 Albumin/Globulin [Mass ratio] 2.2 {ratio} [facility] Serum or plasma non-glucuron idated bilirubin measurement (mass/volume)Ordered By: [facility] on 12-04-2022 Bilirubin.indirect [Mass/Vol] 0.8 mg/dL [facility] Serum tissue transglutaminas e (tTG) IgA antibody assay (units/volume)Ordered By: [facility] on 12-04-2022 tTG IgA Qn (S) <2 U/mL 0-3 [facility] Comment on above: Negative 0 - 3 Weak Positive 4 - 10 Positive >10 Tissue Transglutaminase (tTG) has been identified as the endomysial antigen. Studies have demonstr- ated that endomysial IgA antibodies have over 99% specificity for gluten sensitive enteropathy. Serum tissue transglutaminas e (tTG) IgG antibody assay (units/volume)Ordered By: [facility] on 12-04-2022 tTG IgG Qn (S) 3 U/mL 0-5 [facility] Comment on above: Negative 0 - 5 Weak Positive 6 - 9 Positive >9 Thyroid Stimulating Hormoneo n 12-04-2022 TSH Qn 0.53 m[IU]/L Normal 0.45-5.33 [facility] Comment on above: Order Comment: Reaso n for Exam Diarrhea Result Comment: PERF ORMED BY: [place] [address] PATHOLOGIST CPR AMBULANCE DRIVER BRITTANY WATT M.D. Performed By: #### H IV SCREEN, CELIAC #### [facility] , #### TSH3, HEPATIC, CBC, CRP, LIPASE, ESR #### [address] Thyrotropin [Units/volume] i n Serum or PlasmaOrdered By: amy Jasso on 12-04-2022 TSH Qn 0.53 m[IU]/L 0.45-5.33 [facility] WBC Auto (Bld) [#/Vol]Ordere d By: Angeli Bacon on 12-04-2022 WBC (Bld) [#/Vol] 7.2 10*3/uL 3.8-11.6 [facility] FREE T3on 09-28-2022 FREE T3 2.72 pg/mlL Normal 2.18-3.98 [facility] Comment on above: Performed By: #### F T3, TSH ####[facility] [address] [place] [address] Orr FREE T4on 09-28-2022 Free T4 [Mass/Vol] 0.94 ng/dL Normal 0.76-1.46 [facility] Comment on above: Performed By: #### F T4, VITAD #### [facility] [address] [place], [place] [address] Dr. Remberto Orr TSHon 09-28-2022 TSH 0.595 uIU/mL Normal 0.358-3.740 [facility] Comment on above: Performed By: #### F T3, TSH ####[facility] [address] [place] [address] Orr VITAMIN D 25 OHon 09-28-2022 VIT D 25-OH 21.9 ng/mL Normal [facility] Comment on above: Performed By: #### F T4, VITAD ####[facility] [address] [place] [address]Dr[place] Orr VIT D RANGES SEE BELOW Normal [facility] Comment on above: Result Comment: <20 ng/mL Vit D deficient 20 - <30 ng/mL Vit D insufficient 30 - 100 ng/mL Vit D sufficient >100 ng/mL Potential Toxicity Performed By: #### F T4, VITAD ####[facility] [address] [place] [address]Dr. Remberto Orr THYROID ANTIBODIESon 023 Thyroglobulin Antibody <1.0 Normal 0.0-0.9 [facility] Comment on above: Result Comment: Thyr oglobulin Antibody measured by [employer] Method[employer] Performed By: #### T HYRABS ####[facility] [address] [place] [address] Thyroid Peroxidase (TPO) Ab 9 IU/mL Normal 0-34 [facility] Comment on above: Performed By: #### T HYRABS ####[facility] [address] [place] [id number] OCC BLD IMMUNO SCREENon OCCULT BLOOD Negative Normal NEGATIVE [facility] Comment on above: Performed By: #### O BSCRN ####[facility] [address] [place] [address] FREE T4on 05-31-2022 Free T4 [Mass/Vol] 0.65 ng/dL Critically low 0.76-1.[address] [facility] Comment on above: Performed By: #### F T4 ####[facility] [address] [place] [address]Dr[place] Orr TSHon 05-31-2022 TSH 0.991 uIU/mL Normal 0.358-3.740 [facility] Comment on above: Performed By: #### T SH #### [facility] [address] [place] [address] [address] Remberto Orr XR CHEST 2 Von [...] by: BLAIR CHESTER Date: 2022-05-31 15:50 Normal [facility] AMYLASEon 05-28-2022 Amylase [Catalytic activity/Vol] 52 U/L Normal 25-115 [facility] Comment on above: Performed By: #### A MY, FT3, TSH, CRP, CMP, LIPA #### [facility] [address] [place] [address] Dr. Remberto Orr CBC AUTO DIFFon 05-28-2022 BASO # 0.1 103/ul Normal 0.0-0.1 [facility] Comment on above: Performed By: #### C BC #### [facility] [address] [place] [address] Dr. Remberto Orr Basophils/100 WBC (Bld) 0.6 % Normal 0.2-2.0 [facility] Comment on above: Performed By: #### C BC #### [facility] [address] [place] [address] Dr. Remberto Orr EO # 0.3 103/ul Normal 0.0-0.7 [facility] Comment on above: Performed By: #### C BC #### [facility] [address] [place] [address] Dr. Remberto Orr Eosinophils/100 WBC (Bld) 3.6 % Normal 0.9-7.0 [facility] Comment on above: Performed By: #### C BC #### [facility] [address] [place] [address] Dr. Remberto Orr Erythrocyte distribution width (RBC) [Ratio] 12.5 % Normal 11.0-15.0 [facility] Comment on above: Performed By: #### C BC #### [facility] [address] [place] [address] Dr. Remberto Orr Hematocrit (Bld) [Volume fraction] 38.6 % Normal 36.0-48.0 [facility] Comment on above: Performed By: #### C BC #### [facility] [address] [place] [address] Dr. Remberto Orr Hemoglobin (Bld) [Mass/Vol] 13.1 g/dL Normal 12.0-16.0 [facility] Comment on above: Performed By: #### C BC #### [facility] [address] [place] [address] Dr. Remberto Orr IG # 0.02 10e3/ul Normal 0.00-0.03 [facility] Comment on above: Performed By: #### C BC #### [facility] [address] [place] [address] Dr. Remberto Orr IG % 0.3 % Normal 0.0-0.5 [facility] Comment on above: Performed By: #### C BC #### [facility] [address] [place] [address] Dr. Remberto Orr LYMPH # 2.4 103/ul Normal 1.2-3.8 [facility] Comment on above: Performed By: #### C BC #### [facility] [address] [place] [address] Dr. Remberto Orr Lymphocytes/100 WBC (Bld) 30.8 % Normal 20.5-60.0 [facility] Comment on above: Performed By: #### C BC #### [facility] [address] [place] [address] Dr. Remberto Orr MANUAL DIFF REQ NO Normal [facility] Comment on above: Performed By: #### C BC #### [facility] [address] [place] [address] Dr. Remberto Orr MCH (RBC) [Entitic mass] 28.4 pg Normal 26.7-34.0 [facility] Comment on above: Performed By: #### C BC #### [facility] [address] [place] [address] Dr. Remberto Orr MCHC (RBC) [Mass/Vol] 33.9 g/dL Normal 29.9-35.2 [facility] Comment on above: Performed By: #### C BC #### [facility] [address] [place] [address] Dr. Remberto Orr MCV (RBC) [Entitic vol] 83.7 fL Normal 81.0-99.0 [facility] Comment on above: Performed By: #### C BC #### [facility] [address] [place] [address] Dr. Remberto Orr MONO # 0.5 103/ul Normal 0.3-0.8 [facility] Comment on above: Performed By: #### C BC #### [facility] [address] [place] [address] Dr. Remberto Orr Monocytes/100 WBC (Bld) 5.9 % Normal 1.7-12.0 [facility] Comment on above: Performed By: #### C BC #### [facility] [address] [place] [address] Dr. Remberto Orr NEUT # 4.6 103/ul Normal 1.4-6.5 [facility] Comment on above: Performed By: #### C BC #### [facility] [address] [place] [address] Dr. Remberto Orr Neutrophils/100 WBC (Bld) 58.8 % Normal 43.0-75.0 [facility] Comment on above: Performed By: #### C BC #### [facility] [address] [place] [address] Dr. Remberto Orr Platelet mean volume (Bld) [Entitic vol] 10.3 fL Normal 9.5-13.5 [facility] Comment on above: Performed By: #### C BC #### [facility] [address] [place] [address] Dr. Remberto Orr PLT 273 103/ul Normal 150-450 [facility] Comment on above: Performed By: #### C BC #### [facility] [address] [place] [address] Dr. Remberto Orr RBC 4.61 106/ul Normal 4.20-5.40 [facility] Comment on above: Performed By: #### C BC #### [facility] [address] [place] [address] Dr. Remberto Orr WBC 7.9 103/ul Normal 4.0-11.0 [facility] Comment on above: Performed By: #### C BC #### [facility] [address] [place] [address] Dr. Remberto Orr CRPon 05-28-2022 CRP [Mass/Vol] mg/L Normal <=1.0 [facility] Comment on above: Performed By: #### A MY, FT3, TSH, CRP, CMP, LIPA #### [facility] [address] [place] [address] [address] Remberto Orr FREE T3on 05-28-2022 FREE T3 2.50 pg/mlL Normal 2.18-3.98 [facility] Comment on above: Performed By: #### A MY, FT3, TSH, CRP, CMP, LIPA #### [facility] [address] [place] [address] [address] Remberto Orr FREE T4on 05-28-2022 Free T4 [Mass/Vol] 0.68 ng/dL Critically low 0.76-1.46 [facility] Comment on above: Performed By: #### A MY, FT3, TSH, CRP, CMP, LIPA #### [facility] [address] [place] [address] [address] Remberto Orr IRONon 05-28-2022 Iron [Mass/Vol] 46.0 ug/dL Critically low 50.0-170.0 [facility] Comment on above: Performed By: #### I CLEMENTINE, VITB12, VITAD, FT4 ####[facility] [address] [place] [address]Dr. Remberto Orr LIPASEon 05-28-2022 Lipase [Catalytic activity/Vol] 126.0 U/L Normal 73.0-393.0 [facility] Comment on above: Performed By: #### A MY, FT3, TSH, CRP, CMP, LIPA #### [facility] [address] [place] [address] [address] Remberto Orr PROF 14(COMP METB)on 022 Albumin [Mass/Vol] 3.8 g/dL Normal 3.4-5.0 [facility] Comment on above: Performed By: #### A MY, FT3, TSH, CRP, CMP, LIPA #### [facility] [address] [place] [address] [address] Remberto Orr Albumin/Globulin [Mass ratio] 1.4 {ratio} Normal [facility] Comment on above: Performed By: #### A MY, FT3, TSH, CRP, CMP, LIPA #### [facility] [address] [place] [address] Dr. Remberto Orr ALP [Catalytic activity/Vol] 73 U/L Normal 46-116 [facility] Comment on above: Performed By: #### A MY, FT3, TSH, CRP, CMP, LIPA #### [facility] [address] [place] [address] Dr. Remberto Orr ALT [Catalytic activity/Vol] 16 U/L Normal 14-59 [facility] Comment on above: Performed By: #### A MY, FT3, TSH, CRP, CMP, LIPA #### [facility] [address] [place] [address] Dr. Remberto Orr Anion gap [Moles/Vol] 10.0 mmol/L Normal [facility] Comment on above: Performed By: #### A MY, FT3, TSH, CRP, CMP, LIPA #### [facility] [address] [place] [address] Dr. Remberto Orr AST [Catalytic activity/Vol] 16 U/L Normal 15-37 [facility] Comment on above: Performed By: #### A MY, FT3, TSH, CRP, CMP, LIPA #### [facility] [address] [place] [address] Dr. Remberto Orr Bilirubin [Mass/Vol] 0.3 mg/dL Normal 0.2-1.0 [facility] Comment on above: Performed By: #### A MY, FT3, TSH, CRP, CMP, LIPA #### [facility] [address] [place] [address] Dr. Remberto Orr Calcium [Mass/Vol] 8.8 mg/dL Normal 8.5-10.1 [facility] Comment on above: Performed By: #### A MY, FT3, TSH, CRP, CMP, LIPA #### [facility] [address] [place] [address] Dr. Remberto Orr Chloride [Moles/Vol] 104 mmol/L Normal 98-107 [facility] Comment on above: Performed By: #### A MY, FT3, TSH, CRP, CMP, LIPA #### [facility] [address] [place] [address] Dr. Remberto Orr CO2 [Moles/Vol] 29.5 mmol/L Normal 21.0-32.0 [facility] Comment on above: Performed By: #### A MY, FT3, TSH, CRP, CMP, LIPA #### [facility] [address] [place] [address] [address] Remberto Orr Creatinine [Mass/Vol] 0.55 mg/dL Normal 0.55-1.02 [facility] Comment on above: Performed By: #### A MY, FT3, TSH, CRP, CMP, LIPA #### [facility] [address] [place] [address] Dr. Remberto Orr EGFR-AF CITIZEN [place] >60 Normal >=60 [facility] Comment on above: Performed By: #### A MY, FT3, TSH, CRP, CMP, LIPA #### [facility] [address] [place] [address] Dr. Remberto Orr EGFR-NON AF CITIZEN OF [place] >60 Normal >=60 [facility] Comment on above: Performed By: #### A MY, FT3, TSH, CRP, CMP, LIPA #### [facility] [address] [place] [address] Dr. Remberto Orr Globulin (S) [Mass/Vol] 2.7 g/dL Normal [facility] Comment on above: Performed By: #### A MY, FT3, TSH, CRP, CMP, LIPA #### [facility] [address] [place] [address] Dr. Remberto Orr Glucose [Mass/Vol] 93 mg/dL Normal 74-106 [facility] Comment on above: Performed By: #### A MY, FT3, TSH, CRP, CMP, LIPA #### [facility] [address] [place] [address] Dr. Remberto Orr Potassium [Moles/Vol] 3.5 mmol/L Normal 3.5-5.1 [facility] Comment on above: Performed By: #### A MY, FT3, TSH, CRP, CMP, LIPA #### [facility] [address] [place] [address] Dr. Remberto Orr Protein [Mass/Vol] 6.5 g/dL Normal 6.4-8.2 [facility] Comment on above: Performed By: #### A MY, FT3, TSH, CRP, CMP, LIPA #### [facility] [address] [place] [address] Dr. Remberto Orr Sodium [Moles/Vol] 140 mmol/L Normal 136-145 [facility] Comment on above: Performed By: #### A MY, FT3, TSH, CRP, CMP, LIPA #### [facility] [address] [place] [address] Dr. Remberto Orr Urea nitrogen [Mass/Vol] 10.0 mg/dL Normal 7.0-18.0 [facility] Comment on above: Performed By: #### A MY, FT3, TSH, CRP, CMP, LIPA #### [facility] Laboratory [address] [place] [address] Dr. Remberto Orr Urea nitrogen/Creatinine [Mass ratio] 18.2 mg/mg Normal [facility] Comment on above: Performed By: #### A MY, FT3, TSH, CRP, CMP, LIPA #### [facility] [address] [place] [address] Dr. Remberto Orr SED RATE [facility] 2021 SED RATE <1 Normal <=20 [facility] Comment on above: Performed By: #### A MY, FT3, TSH, CRP, CMP, LIPA #### [facility] [address] [place] [address] Dr. Remberto Orr TSHon 05-28-2022 TSH 0.985 uIU/mL Normal 0.358-3.740 The [facility] Comment on above: Performed By: #### A MY, FT3, TSH, CRP, CMP, LIPA #### [facility] [address] [place] [address] Dr. Remberto Orr UA RANDOM W/MICROSCOPICon BACTERIA NONE SEEN Normal NONE SEEN [facility] Comment on above: Performed By: #### U AMIC ####[facility] [address] [place] [id number]. Sheilaje Orr Bilirubin Ql (U) Negative Normal NEGATIVE The [facility] Comment on above: Performed By: #### U AMIC ####[facility] [address] [place] [address]Dr. Remberto Orr CAST NONE SEEN Normal NONE SEEN [facility] Comment on above: Performed By: #### U AMIC ####[facility] [address] [place], [place] [address]Dr. Remberto Orr Clarity (U) CLEAR Normal CLEAR [facility] Comment on above: Performed By: #### U AMIC ####[facility] [address] [place], [place] [address]Dr. Remberto Orr Color (U) LT. YELLOW Normal YELLOW [facility] Comment on above: Performed By: #### U AMIC ####[facility] [address] [place], [place] [address]Dr. Remberto Orr Crystals LM Nom (Urine sed) NONE SEEN Normal NONE SEEN [facility] Comment on above: Performed By: #### U AMIC ####[facility] [address] [place], [place] [address]Dr. Remberto Orr Epithelial cells LM Ql (Urine sed) MODERATE Abnormal NONE SEEN /RARE [facility] Comment on above: Performed By: #### U AMIC ####[facility] [address] [place], [place] [address]Dr. Remberto Orr Glucose Ql (U) Negative Normal NEGATIVE The [facility] Comment on above: Performed By: #### U AMIC ####[facility] [address] [place], [place] [address]Dr. Remberto Orr Hemoglobin Ql (U) Negative Normal NEGATIVE The [facility] Comment on above: Performed By: #### U AMIC ####[facility] [address] [place], [place] [address]Dr. Remberto Orr Ketones Ql (U) TRACE Abnormal NEGATIVE The [facility] Comment on above: Performed By: #### U AMIC ####[facility] [address] [place], [place] [address]Dr. Remberto Orr LEUKOCYTES Negative Normal NEGATIVE [facility] Comment on above: Performed By: #### U AMIC ####[facility] [address] [place] [address]Dr. Remberto Orr MUCOUS TRACE Abnormal NONE SEEN [facility] Comment on above: Performed By: #### U AMIC ####[facility] [address] [place] [address]Dr. Remberto Orr Nitrite Ql (U) Negative Normal NEGATIVE The [facility] Comment on above: Performed By: #### U AMIC ####[facility] [address] [place] [address]Dr. Remberto Orr pH (U) 6.5 [pH] Normal 5-9 [facility] Comment on above: Performed By: #### U AMIC ####[facility] [address] [place], [place] [address]Dr. Remberto Orr RBC 0-2 Normal 0-2 [facility] Comment on above: Performed By: #### U AMIC ####[facility] [address] [place], [place] [address]Dr. Remberto Orr SPEC GRAVITY 1.025 Normal 1.005-<=1.025 The [facility] Comment on above: Performed By: #### U AMIC ####[facility] [address] [place], [place] [address]Dr. Remberto Orr UA PROTEIN Negative Normal NEGATIVE/ TRACE [facility] Comment on above: Performed By: #### U AMIC ####[facility] [address] [place], [place] [address]Dr. Remberto Orr Urobilinogen Qn (U) 1.0 {Arlette'U}/dL Normal 0.2 - 1. 0 [facility] Comment on above: Performed By: #### U AMIC ####[facility] [address] [place] [address]Dr. Sheilaje Orr WBC 0-2 Abnormal NONE SEEN [facility] Comment on above: Performed By: #### U AMIC ####[facility] [address] [place] [id number][address] Remberto Kirby VITAMIN B12on 05-28-2022 Cobalamin (Vitamin B12) [Mass/Vol] 414.0 pg/mL Normal 193.0-986.0 [facility] Comment on above: Performed By: #### I CLEMENTINE, VITB12, VITAD, FT4 ####[facility] [address] [place], [place] [address]Tf. Remberto Orr VITAMIN D 25 OHon 05-28-2022 VIT D 25-OH 7.4 ng/mL Normal [facility] Comment on above: Performed By: #### I CLEMENTINE, VITB12, VITAD, FT4 ####[facility] [address] [place] [id number]. Remberto Orr VIT D RANGES SEE BELOW Normal [facility] Comment on above: Result Comment: <20 ng/mL Vit D deficient 20 - <30 ng/mL Vit D insufficient 30 - 100 ng/mL Vit D sufficient >100 ng/mL Potential Toxicity Performed By: #### I CLEMENTINE, VITB12, VITAD, FT4 ####[facility] [address] [place] [id number]. Remberto Orr Vital Signs Date Time Vital Sign Value Performing Clinician Facility 12-16-2024 13:45-0400 Body mass index (BMI) [Ratio] 25.39 kg/m2 Oneyda Zapata ED MANAGER Work Phone: [facility] 12-16-2024 13:45-0400 Body temperature 98.2 [degF] Oneyda Zapata ED MANAGER Work Phone: [facility] 12-16-2024 13:45-0400 Body weight 62.96 kg Oneyda Zapata ED MANAGER Work Phone: [facility] 12-16-2024 13:45-0400 Diastolic blood pressure 78 mm[Hg] Oneyda Zapata ED MANAGER Work Phone: [facility] 12-16-2024 13:45-0400 Heart rate 75 /min Oneyda Zapata ED MANAGER Work Phone: [facility] 12-16-2024 13:45-0400 Respiratory rate 18 /min Oneyda Prasanthhholz ED MANAGER Work Phone: [facility] 12-16-2024 13:45-0400 SaO2% (BldA) [Mass fraction] 98 % Oneyda Aichholz ED MANAGER Work Phone: [facility] 12-16-2024 13:45-0400 Systolic blood pressure 118 mm[Hg] Oneyda Aichholz ED MANAGER Work Phone: [facility] 11-03-2024 13:01-0400 Body mass index (BMI) [Ratio] 24.66 kg/m2 Oneyda Aichholz ED MANAGER Work Phone: [facility] 11-03-2024 13:01-0400 Body temperature 98.6 [degF] Oneyda Aichholz ED MANAGER Work Phone: [facility] 11-03-2024 13:01-0400 Body weight 61.15 kg Oneyda Aichholz ED MANAGER Work Phone: [facility] 11-03-2024 13:01-0400 Diastolic blood pressure 70 mm[Hg] Oneyda Aichholz ED MANAGER Work Phone: [facility] 11-03-2024 13:01-0400 Heart rate 89 /min Oneyda Aichholz ED MANAGER Work Phone: [facility] 11-03-2024 13:01-0400 Respiratory rate 18 /min Oneyda Aichholz ED MANAGER Work Phone: [facility] 11-03-2024 13:01-0400 SaO2% (BldA) [Mass fraction] 98 % Oneyda Aichholz ED MANAGER Work Phone: [facility] 11-03-2024 13:01-0400 Systolic blood pressure 106 mm[Hg] Oneyda Aichholz ED MANAGER Work Phone: [facility] 07-05-2024 13:49-0500 Body height 157.5 cm Oneyda Aichholz ED MANAGER Work Phone: [facility] 07-05-2024 13:49-0500 Body mass index (BMI) [Ratio] 25.86 kg/m2 Oneydajn Hiltonz ED MANAGER Work Phone: [facility] 07-05-2024 13:49-0500 Body temperature 98.6 [degF] Oneyda Trevorholz ED MANAGER Work Phone: [facility] 07-05-2024 13:49-0500 Body weight 64.14 kg Oneydajn Murrayholz ED MANAGER Work Phone: [facility] Comment on above: with winter coat 07-05-2024 13:49-0500 Diastolic blood pressure 80 mm[Hg] Oneyda Murrayholz ED MANAGER Work Phone: [facility] 07-05-2024 13:49-0500 Heart rate 94 /min Oneyda Trevorholz ED MANAGER Work Phone: [facility] 07-05-2024 13:49-0500 Respiratory rate 19 /min Oneydajn Murrayholz ED MANAGER Work Phone: [facility] 07-05-2024 13:49-0500 SaO2% (BldA) [Mass fraction] 99 % Oneyda Trevorholz ED MANAGER Work Phone: [facility] 07-05-2024 13:49-0500 Systolic blood pressure 128 mm[Hg] Oneyda Trevorholz ED MANAGER Work Phone: [facility] 01-27-2024 13:13-0400 Body height 157.5 cm Oneyda Trevorholz ED MANAGER Work Phone: [facility] 01-27-2024 13:13-0400 Body mass index (BMI) [Ratio] 24.14 kg/m2 Oneyda Prasanthhholz ED MANAGER Work Phone: [facility] 01-27-2024 13:13-0400 Body temperature 98.6 [degF] Oneyda Prasanthhholz ED MANAGER Work Phone: [facility] 01-27-2024 13:13-0400 Body weight 59.88 kg Oneyda Aichholz ED MANAGER Work Phone: [facility] 01-27-2024 13:13-0400 Diastolic blood pressure 76 mm[Hg] Oneyda Aichholz ED MANAGER Work Phone: [facility] 01-27-2024 13:13-0400 Heart rate 67 /min Oneyda Aichholz ED MANAGER Work Phone: [facility] 01-27-2024 13:13-0400 Respiratory rate 18 /min Oneyda Aichholz ED MANAGER Work Phone: [facility] 01-27-2024 13:13-0400 SaO2% (BldA) [Mass fraction] 98 % Oneyda Aichholz ED MANAGER Work Phone: [facility] 01-27-2024 13:13-0400 Systolic blood pressure 110 mm[Hg] Oneyda Aichholz ED MANAGER Work Phone: [facility] 01-10-2023 11:50-0400 Diastolic blood pressure 81 mm[Hg] Oneyda Aichholz Work Phone: [facility] 01-10-2023 11:50-0400 Heart rate 49 /min Oneyda Aichholz Work Phone: [facility] 01-10-2023 11:50-0400 Respiratory rate 16 /min Oneyda Aichholz Work Phone: [facility] 01-10-2023 11:50-0400 SaO2% (BldA) [Mass fraction] 98 % Oneyda Aichholz Work Phone: [facility] 01-10-2023 11:50-0400 Systolic blood pressure 127 mm[Hg] Oneyda Aichholz Work Phone: [facility] 01-10-2023 09:17-0400 Body height 157.48 cm Oneyda Aichholz Work Phone: [facility] 01-10-2023 09:17-0400 Body temperature 98.1 [degF] Oneyda Jodi Work Phone: [facility] 01-10-2023 09:17-0400 Body weight 72.57 kg Oneyda Prasanthelhamattila Work Phone: [facility] 11-26-2022 14:45-0400 Body height 157.48 cm Imad Asaad Other [employer] Other 11-26-2022 14:45-0400 Body mass index (BMI) [Ratio] 29.63 kg/m2 Imad Asaad Other [employer] Other 11-26-2022 14:45-0400 Body weight 73.48 kg Imad Asaad Other [employer] Other 11-26-2022 14:45-0400 Diastolic blood pressure 79 mm[Hg] Imad Asaad Other [employer] Other 11-26-2022 14:45-0400 Systolic blood pressure 110 mm[Hg] Imad Asaad Other [employer] Other Encounters Encounter Date Encounter Type Care Provider Facility Start: 12-16-2024 End: 12-16-2024 Bamboo flowsheet Oneyda Zapata ED MANAGER Work Phone: [facility] Start: 12-16-2024 End: 12-16-2024 Bamboo flowsheet Oneyda Zapata ED MANAGER Work Phone: [facility] Start: 12-16-2024 End: 12-16-2024 Office outpatient visit 15 minutes Oneyda Zapata ED MANAGER Work Phone: [facility] Comment on above: Other constipation ( Primary Dx); Hypothyroidism (acquired) ; Tobacco user Start: 12-16-2024 End: 12-16-2024 ambulatory ONEYDA AICHHOLZ Not Available Start: 11-03-2024 End: 11-03-2024 Bamboo flowsheet Oneyda Aichholz ED MANAGER Work Phone: [facility] Start: 11-03-2024 End: 11-03-2024 Bamboo flowsheet Oneyda Aichholz ED MANAGER Work Phone: [facility] Start: 11-03-2024 End: 11-03-2024 Office outpatient visit 25 minutes Oneyda Aichholz ED MANAGER Work Phone: [facility] Comment on above: Hypothyroidism (acqu ired) (CMS/HCC) (Primary Dx); Anxiety and depression (CMS/HCC); Tobacco user; Vitamin D deficiency; Anemia due to other cause, not classified; Mixed hyperlipidemia (CMS/HCC); Gastroesophageal reflux disease without esophagitis; Other constipation Start: 11-03-2024 End: 11-03-2024 ambulatory ONEYDA AICHHOLZ Not Available Start: 07-05-2024 End: 07-05-2024 Bamboo flowsheet Oneyda Aichholz ED MANAGER Work Phone: [facility] Start: 07-05-2024 End: 07-05-2024 Bamboo flowsheet Oneyda Aichholz ED MANAGER Work Phone: [facility] Start: 07-05-2024 End: 07-05-2024 Office outpatient visit 15 minutes Oneyda Aichholz ED MANAGER Work Phone: [facility] Comment on above: Anxiety and depressi on (CMS/HCC) (Primary Dx); Hypothyroidism (acquired) (CMS/HCC); Tobacco user Start: 07-05-2024 End: 07-05-2024 ambulatory ONEYDA AICHHOLZ Not Available Start: 05-29-2024 End: 05-31-2024 Refill Oneyda Aichholz ED MANAGER Work Phone: [facility] Comment on above: Anxiety and depressi on (CMS/HCC) Start: 01-27-2024 End: 01-27-2024 Bamboo flowsheet Oneyda Prasanthelhamattila ED MANAGER Work Phone: [facility] Start: 01-27-2024 End: 01-27-2024 Bamboo flowsheet Oneyda Murrayattila ED MANAGER Work Phone: [facility] Start: 01-27-2024 End: 01-27-2024 Office outpatient visit 25 minutes Oneyda Jodi ED MANAGER Work Phone: [facility] Comment on above: Anxiety and depressi on (CMS/HCC) (Primary Dx); Generalized abdominal pain; Breast tenderness in female Start: 01-27-2024 End: 01-27-2024 ambulatory ONEYDA JODI Not Available Start: 01-10-2023 End: 01-10-2023 ambulatory Oneydajn Zapata Facility:[facility] Start: 01-10-2023 End: 01-10-2023 Admission to same day surgery center Oneyda oJdi Work Phone: [facility] Work Phone: Start: 01-10-2023 End: 01-10-2023 ambulatory Oneyda Lisandra Zapata Work Phone: [facility] Work Phone: Start: 12-04-2022 End: 12-04-2022 ambulatory Oneyda Zapata Facility:[facility] Start: 12-04-2022 End: 12-04-2022 Patient encounter procedure Oneyda Jodi Work Phone: [facility] Work Phone: Start: 12-04-2022 End: 12-04-2022 ambulatory Oneyda Lisandra Zapata Work Phone: [facility] Work Phone: Start: 12-04-2022 Telephone encounter Imad Asaad [facility] Start: 11-26-2022 End: 11-26-2022 ambulatory Imad Asaad Other [facility] [employer] Other Start: 11-26-2022 Office outpatient ne w 45 minutes Angeli L[facility] Start: 09-28-2022 End: 09-29-2022 ambulatory W[employer] OUT WORKER ONEYDAJn MURRAYHOLAngela Facility:[facility] Start: 06-04-2022 End: 06-04-2022 ambulatory WELD LAY OUT WORKER ONEYDA JODI Facility:[facility] Start: 05-31-2022 End: 06-01-2022 ambulatory WELD LAY OUT WORKER ONEYDA JODI Facility:[facility] Start: 05-28-2022 End: 05-29-2022 ambulatory WELD LAY OUT WORKER ONEYDA TREVORHOLZ Facility:[facility] Procedures Date Procedure Procedure Detail Performing Clinician Start: 11-27-2023 Microscopic observation [Identifier] in Cervix by Cyto stain Oneyda Zapata ED MANAGER Work Phone: Start: 01-10-2023 Esophagogastroduodenoscopy Oneyda Zapata Work Phone: Start: 12-04-2022 Computed tomography of abdomen and pelvis with contrast Oneyda Zapata Work Phone: Plan of Treatment Date Care Activity Detail Author Start: 11-26-2026 Screening for malignant neoplasm of cervix [facility] Start: 12-16-2024 End: 12-16-2024 Patient encounter procedure 12/16/2024 1:40 PM EDT Office Visit [facility] [address] [place] [phone] Oneyda Zapata NP [address] [place] [address] Other constipation (Primary Dx); Hypothyroidism (acquired) ; Tobacco user [facility] Comment on above: Other constipation (Primary Dx); Hypothyroidism (acquired) ; Tobacco user Start: 11-03-2024 End: 11-03-2025 25-hydroxyvitamin D3 [Mass/volume] in Serum or Plasma Vitamin D 25 hydroxy Lab Routine Vitamin D deficiency Expected: 11/03/2024 (Approximate), Expires: 11/03/2025 [facility] Comment on above: Expected: 11/03/2024 (Approximate), Expi res: 11/03/2025 Start: 11-03-2024 End: 11-03-2025 CBC W Auto Differential panel - Blood CBC and differential Lab Routine Anemia due to other cause, not classified Expected: 11/03/2024 (Approximate), Expires: 11/03/2025 [facility] Work Phone: Comment on above: Expected: 11/03/2024 (Approximate), Expi res: 11/03/2025 Start: 11-03-2024 End: 11-03-2025 Cobalamin (Vitamin B12) [Mass/volume] in Serum or Plasma Vitamin B12 Lab Routine Anemia due to other cause, not classified Expected: 11/03/2024 (Approximate), Expires: 11/03/2025 [facility] Comment on above: Expected: 11/03/2024 (Approximate), Expi res: 11/03/2025 Start: 11-03-2024 End: 11-03-2025 Comprehensive metabolic 2000 panel - Serum or Plasma Comprehensive metabolic panel Lab Routine Vitamin D deficiency Mixed hyperlipidemia (CMS/HCC) Expected: 11/03/2024 (Approximate), Expires: 11/03/2025 [facility] Comment on above: Expected: 11/03/2024 (Approximate), Expi res: 11/03/2025 Start: 11-03-2024 End: 11-03-2025 Ferritin [Mass/volume] in Serum or Plasma Ferritin Lab Routine Anemia due to other cause, not classified Expected: 11/03/2024 (Approximate), Expires: 11/03/2025 [facility] Comment on above: Expected: 11/03/2024 (Approximate), Expi res: 11/03/2025 Start: 11-03-2024 End: 11-03-2025 Iron + transferrin + TIBC Iron + transferrin + TIBC Lab Routine Anemia due to other cause, not classified Expected: 11/03/2024 (Approximate), Expires: 11/03/2025 [facility] Comment on above: Expected: 11/03/2024 (Approximate), Expi res: 11/03/2025 Start: 11-03-2024 End: 11-03-2025 Lipid 1996 panel - Serum or Plasma Lipid panel Lab Routine Mixed hyperlipidemia ([facility]) Expected: 11/03/2024 (Approximate), Expires: 11/03/2025 [facility] Comment on above: Expected: 11/03/2024 (Approximate), Expi res: 11/03/2025 Start: 11-03-2024 End: 11-03-2025 Thyrotropin [Units/volume] in Serum or Plasma TSH Lab Routine Hypothyroidism (acquired) ([facility]) Expected: 11/03/2024 (Approximate), Expires: 11/03/2025 [facility] Comment on above: Expected: 11/03/2024 (Approximate), Expi res: 11/03/2025 Start: 11-03-2024 End: 11-03-2025 Thyroxine (T4) free [Mass/volume] in Serum or Plasma T4, free Lab Routine Hypothyroidism (acquired) ([facility]) Expected: 11/03/2024 (Approximate), Expires: 11/03/2025 [facility] Comment on above: Expected: 11/03/2024 (Approximate), Expi res: 11/03/2025 Start: 11-03-2024 End: 11-03-2025 Urinalysis complete panel - Urine Urinalysis with reflex microscopic (clean catch) Lab Routine Tobacco user Expected: 11/03/2024 (Approximate), Expires: 11/03/2025 [facility] Comment on above: Expected: 11/03/2024 (Approximate), Expi res: 11/03/2025 Start: 11-03-2024 End: 11-03-2024 Patient encounter procedure 11/03/2024 1:00 PM EDT Office Visit [facility] [address] [place] [address] Oneyda Zapata NP [address] [place] [address] Gastroesophageal reflux disease without esophagitis (Primary Dx); Hypothyroidism (acquired) ([facility]); Anxiety and depression ([facility]); Tobacco user; Vitamin D deficiency; Anemia due to other cause, not classified; Mixed hyperlipidemia ([facility]/HCC) [facility] Comment on above: Gastroesophageal reflux disease without esophagitis (Primary Dx); Hypothyroidism (acquired) (CMS/HCC); Anxiety and depression (CMS/HCC); Tobacco user; Vitamin D deficiency; Anemia due to other cause, not classified; Mixed hyperlipidemia (CMS/HCC) Start: 07-05-2024 End: 07-05-2024 Patient encounter procedure 07/05/2024 1:40 PM EST Office Visit [facility] [address] [place] [address] Oneyda Zapata NP [address] [place] [phone] Hypothyroidism (acquired) (CMS/HCC) (Primary Dx); Anxiety and depression (CMS/HCC); Tobacco user [facility] Comment on above: Hypothyroidism (acquired) (CMS/HCC) (Aura jh Dx); Anxiety and depression (CMS/HCC); Tobacco user Start: 04-27-2024 End: 04-27-2024 Patient encounter procedure 04/27/2024 1:00 PM EST Office Visit [facility] [address] [place] [address] Oneyda aZpata NP [address] [place] [phone] [facility] Start: 01-27-2024 End: 03-28-2025 MG Breast - bilateral Diagnostic Bilateral diagnostic mammogram Imaging Routine Breast tenderness in female Expected: 01/27/2024 (Approximate), Expires: 03/28/2025 [facility] Comment on above: Expected: 01/27/2024 (Approximate), Expi res: 03/28/2025 Start: 01-27-2024 End: 03-28-2025 US Breast - bilateral Bilateral breast US complete Imaging Routine Breast tenderness in female Expected: 01/27/2024 (Approximate), Expires: 03/28/2025 [facility] Work Phone: Comment on above: Expected: 01/27/2024 (Approximate), Expi res: 03/28/2025 Start: 01-10-2023 [facility] Start: 2017 Screening for malignant neoplasm of cervix HPV/Cotest [facility] Endomysial antibody IgA level [facility] Gliadin peptide IgA Ab [Units/volume] in Serum [facility] Gliadin peptide IgG Ab [Units/volume] in Serum [facility] HIV 1+2 Ab+HIV1 p24 Ag [Presence] in Serum or Plasma by Immunoassay [facility] IgA [Mass/volume] in Serum or Plasma [facility] Patient Education Hemorrhoids (D C) Gastritis (DC) [facility] Work Phone: Tissue transglutamin ase IgA Ab [Units/volume] in Serum [facility] Tissue transglutamin ase IgG Ab [Units/volume] in Serum [facility] Immunizations Immunization Date Immunization Notes Care Provider Fa cili 04-03-2020 influenza, injectabl e, quadrivalent, preservative free Oneyda Zapata ED MANAGER Work Phone: [facility] 01-26-2001 hepatitis B vaccine, pediatric or pediatric/adolescent dosage Oneydajn Zapata ED MANAGER Work Phone: [facility] 01-26-2001 measles, mumps and rubella virus vaccine Oneyda Jodi ED MANAGER Work Phone: [facility] 03-23-1991 haemophilus influenz ae type b vaccine, conjugate unspecified formulation Oneyda Zapata ED MANAGER Work Phone: [facility] 10-07-1988 diphtheria, tetanus toxoids and pertussis vaccine Oneyda Jodi ED MANAGER Work Phone: [facility] 10-07-1988 measles, mumps and rubella virus vaccine Oneyda Jodi ED MANAGER Work Phone: [facility] 10-07-1988 trivalent poliovirus vaccine, live, oral Oneyda Zapata ED MANAGER Work Phone: [facility] 04-14-1988 diphtheria, tetanus toxoids and pertussis vaccine Oneyda Jodi ED MANAGER Work Phone: [facility] 03-18-1988 diphtheria, tetanus toxoids and pertussis vaccine Oneyda Trevorholz ED MANAGER Work Phone: [facility] 03-18-1988 trivalent poliovirus vaccine, live, oral Oneyda Aichholz ED MANAGER Work Phone: [facility] 01-17-1988 diphtheria, tetanus toxoids and pertussis vaccine Oneyda Aichholz ED MANAGER Work Phone: [facility] 01-17-1988 trivalent poliovirus vaccine, live, oral Oneyda Aichholz ED MANAGER Work Phone: [facility] Payers Date Payer Category Payer Self-pay [id number] 2022 Private Health Insurance [id number] 1987 Unknown [id number] 1987 Unknown [id number] 1987 Unknown [id number] 1987 Unknown [id number] 1987 Unknown [id number] 1987 Unknown [id number] 1987 Unknown [id number] 1987 Unknown [id number] 1959 Private Health Insurance [id number] Unknown Mateo PORTILLO/TONI [id number] Unknown Regular Insurance [id number] Unknown [id number] Unknown [id number] Social History Date Type Detail Facility Unknown if ever smoked [facility] Other Start: 10-02-2023 End: 11-27-2023 Sex Assigned At [facility] Start: 1985 Sex Assigned At Female F [facility] Start: 01-10-2023 Tobacco smoking stat [facility] Never smoked tobacco (finding) [facility] Start: 10-02-2023 Tobacco smoking stat [facility] Smokes tobacco daily [facility] History of tobacco use Cigarette Smoker [facility] Start: 10-02-2023 End: 11-27-2023 Cigarettes smoked current (pack per day) - Reported 0.3 [facility] Start: 10-02-2023 Tobacco use and exposure Smokeless tobacco non-user [facility] Start: 11-27-2023 End: 12-16-2024 Alcoholic beverage intake Lifetime non-drinker (finding) [facility] How often do you get together with friends or relatives? Patient declined [facility] Are you now , , , , never or living with a partner? Never [facility] How often to you hav e a drink containing alcohol? Monthly or less [facility] How often do you hav e 6 or more drinks on 1 occasion? Never [facility] Do you feel stress - tense, restless, nervous, or anxious, or unable to sleep at night because your mind is troubled all the time - these days [OSQ] Only a little [facility] In the past 12 month s, was there a time when you were not able to pay the mortgage or rent on time? No [facility] Start: 10-02-2023 Alcohol Comment caffine: coffe e 1-3 cups daily [facility] Start: 1985 Sex assigned at Not on file [facility] Goals Date Patient Goal Desired Activity /State Clinical Notes 11-26-2022 to 12-16-2024 Oneyda Jodi, ROXY - 12/16/2024 1:40 PM MAMADOUleila Jodi, ED MANAGER - 12/16/2024 6:40 AM KRISSathya Murrayattila, ED MANAGER - 12/16/2024 6:40 AM MAMADOUleila Jodi, ED MANAGER - 12/16/2024 6:39 AM EDTPatient Instructions Note Date & Type Note Facility 12-16-2024 History of Present illness Narrative Images from the original note were not included. Marilee Galindo is a 39 y.o. female presents with chief complaint of Anxiety HPI: Here for recheck on constipation: Has increased water and fiber, is now having better BM more freq No NV, no abd pain, no bloody stool No other c.o No labs completed either SUBJECTIVE: MEDICATIONS: Current Outpatient Medications Medication Instructions busPIRone (BUSPAR) 10 mg, Oral, 2 times daily dicyclomine (BENTYL) 10 mg, Every 8 hours PRN levothyroxine (SYNTHROID, LEVOXYL) 25 mcg, Oral, Daily before breakfast ALLERGIES: Allergies Allergen Reactions Pedi-Pre Tape [place] [Wound Dressing Adhesive] Shellfish-Derived Products Other Shrimp (Diagnostic) Other REVIEW OF SYMPTOMS: Review of Systems Constitutional: Negative for appetite change, chills and fever. HENT: Negative for congestion, ear pain and sore throat. Eyes: Negative for pain, discharge, redness and visual disturbance. Respiratory: Negative for cough, shortness of breath and wheezing. Cardiovascular: Negative for chest pain, palpitations and leg swelling. Gastrointestinal: Negative for abdominal pain, blood in stool, constipation, diarrhea, nausea and vomiting. Genitourinary: Negative for difficulty urinating, dysuria and frequency. Musculoskeletal: Negative for arthralgias, back pain, joint swelling and myalgias. Skin: Negative for rash and wound. Neurological: Negative for dizziness, tremors, seizures, syncope and headaches. Psychiatric/Behavioral: Negative for behavioral problems, self-injury and suicidal ideas. The patient is not nervous/anxious. Hematological: Does not bruise/bleed easily. Endocrine: Negative for polydipsia, polyphagia and polyuria. Allergic/Immunologic: Negative for environmental allergies and food allergies. PAST MEDICAL HISTORY No past medical history on file. Past Surgical History: Procedure Laterality Date CHOLECYSTECTOMY 2018 family history includes Diabetes in her mother; Heart disease in her mother; Hypertension in her brother and mother. OBJECTIVE: Visit Vitals BP 118/78 (BP Location: Left arm, Patient Position: Sitting, BP Cuff Size: Adult long) Pulse 75 Temp 98.2 F (Temporal) Resp 18 Wt 138 lb 12.8 oz SpO2 98% BMI 25.39 kg/m Smoking Status Every Day BSA 1.66 m Physical Exam Vitals and nursing note reviewed. Constitutional: General: She is not in acute distress. Appearance: Normal appearance. HENT: Head: Normocephalic and atraumatic. Right Ear: External ear normal. Left Ear: External ear normal. Nose: Nose normal. Mouth/Throat: Mouth: Mucous membranes are moist. Eyes: Extraocular Movements: Extraocular movements intact. Conjunctiva/sclera: Conjunctivae normal. Cardiovascular: Rate and Rhythm: Normal rate and regular rhythm. Pulses: Normal pulses. Heart sounds: Normal heart sounds. Pulmonary: Effort: Pulmonary effort is normal. Breath sounds: Normal breath sounds. Abdominal: General: Bowel sounds are normal. There is no distension. Palpations: Abdomen is soft. There is no mass. Tenderness: There is no abdominal tenderness. Musculoskeletal: General: Normal range of motion. Cervical back: Normal range of motion and neck supple. Right lower leg: No edema. Left lower leg: No edema. Skin: General: Skin is warm and dry. Capillary Refill: Capillary refill takes 2 to 3 seconds. Findings: No rash. Neurological: General: No focal deficit present. Mental Status: She is alert and oriented to person, place, and time. Psychiatric: Mood and Affect: Mood normal. Behavior: Behavior normal. Thought Content: Thought content normal. Judgment: Judgment normal. ASSESSMENT AND PLAN: No follow-ups on file. Problem List Items Addressed This Visit Hypothyroidism (acquired) Current med: levo Check labs yearly, prn dose changes or changes in symptoms Tobacco user The patient has been advised of the risks of continued smoking: stroke, [place], all forms of cancer, lung disease, and . Options for quitting smoking include: cold turkey, hypnosis, acupuncture, nicotine replacement meds (gum, lozenges, and patches), Buproprion, and Varenicline. At this time pt is encouraged to evaluate their goals for wanting to quit smoking, and reach out to provider when ready to start this process Other constipation - Primary At last appt was instructed to (64 oz fluid, higher fiber, Miralax as directed, Get labs checked) Is doing much better with just fluids and fiber Did not do miralax Did not bet labs completed, encouraged to do labs, order printed Associated Problem(s): Tobacco user The patient has been advised of the risks of continued smoking: stroke, [place], all forms of cancer, lung disease, and . Options for quitting smoking include: cold turkey, hypnosis, acupuncture, nicotine replacement meds (gum, lozenges, and patches), Buproprion, and Varenicline. At this time pt is encouraged to evaluate their goals for wanting to quit smoking, and reach out to provider when ready to start this process Associated Problem(s): Hypothyroidism (acquired) Current med: levo Check labs yearly, prn dose changes or changes in symptoms Associated Problem(s): Other constipation At last appt was instructed to (64 oz fluid, higher fiber, Miralax as directed, Get labs checked) Is doing much better with just fluids and fiber Did not do miralax Did not bet labs completed, encouraged to do labs, order printed documented in this encounter [facility] 11-03-2024 History of Present illness Narrative Associated Problem(s): Other constipation 64 oz fluid, higher fiber Miralax as directed Get labs checked Fu in 6 weeks Associated Problem(s): Gastroesophageal reflux disease without esophagitis No gerd treatment at this time Images from the original note were not included. Marilee Galindo is a 39 y.o. female presents with chief complaint of Anxiety HPI: Had colonoscopy: 01/01 Anxiety Presents for follow-up visit. Symptoms include insomnia (around period), irritability and nervous/anxious behavior. Patient reports no chest pain, depressed mood, dizziness, excessive worry, muscle tension, nausea, palpitations, restlessness, shortness of breath or suicidal ideas. Symptoms occur occasionally. The severity of symptoms is mild. The patient sleeps 6 hours per night. The quality of sleep is good. Nighttime awakenings: one to two (to urinate). Compliance with medications is 76-100%. Thyroid Problem Presents for follow-up visit. Symptoms include anxiety, constipation, fatigue and hair loss (occ). Patient reports no cold intolerance, depressed mood, diarrhea, heat intolerance, hoarse voice, menstrual problem, palpitations, tremors or weight gain. The symptoms have been stable. Constipation This is a chronic problem. The current episode started more than 1 year ago. Her stool frequency is 2 to 3 times per week. The stool is described as formed and firm. The patient is not on a high fiber diet. She Does not exercise regularly. There has Not been adequate water intake (2 coffees , 1.5 bottles water). Associated symptoms include difficulty urinating. Pertinent negatives include no abdominal pain (cramping lower abd), back pain, bloating, diarrhea, fecal incontinence, fever, hematochezia, hemorrhoids, melena, nausea, rectal pain or vomiting. Risk factors include dietary change and stress. She has tried stool softeners for the symptoms. SUBJECTIVE: MEDICATIONS: Current Outpatient Medications Medication Instructions busPIRone (BUSPAR) 10 mg, Oral, 2 times daily dicyclomine (BENTYL) 10 mg, Every 8 hours PRN levothyroxine (SYNTHROID, LEVOXYL) 25 mcg, Oral, Daily before breakfast ALLERGIES: Allergies Allergen Reactions Pedi-Pre Tape [place] [Wound Dressing Adhesive] Shellfish-Derived Products Other Shrimp (Diagnostic) Other REVIEW OF SYMPTOMS: Review of Systems Constitutional: Positive for fatigue and irritability. Negative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 -Follow up with PCP. -Office number [phone]. [facility] Work Phone: Reason for visit NarrativePATIENT IS HERE AT THE REQUEST OF DR. ZAPATA FOR DIARRHEA AND WEIGHT LOSS. [place] [employer] Other Summary Purpose Family History No Family [...] and content) DATE CREATED AUTHOR 10/04/2022 [facility] DATE CREATED AUTHOR AUTHOR'S ORGANIZ ATION 01/16/2023 [facility] DATE CREATED AUTHOR AUTHOR'S ORGANIZ ATION 12/20/2024 [facility] Care Teams (unrecognized sec tion and content) Team Status: Active Member Role Status Dates Oneyda Zapata Primary Care Provider Active Team Status: Inactive Member Role Status Dates Angeli Bacon MD Attending Provider Active Oneyda Zapata Primary Care Provider Active Service Desk Team Lead Relationship Specialty Start Date End Date Anuel Crawford MD [address] [place] [phone] PCP - General Family Medicine 01/21/23 Oneyda Zapata NP [address] [place] [phone] Nurse Practitioner Family Medicine 10/02/23 Service Desk Team Lead Relationship Specialty Start Date End Date Anuel Crawford MD [address] [place] [phone] PCP - General Family Medicine 01/21/23 Oneyda Zapata NP [address] [place] [phone] Nurse Practitioner Family Medicine 10/02/23 Service Desk Team Lead Relationship Specialty Start Date End Date Anuel Crawford MD [address] [place] [phone] PCP - General Family Medicine 01/21/23 Oneyda Zapata NP [address] [place] [phone] Nurse Practitioner Family Medicine 10/02/23 Service Desk Team Lead Relationship Specialty Start Date End Date Anuel Crawford MD [address] [place] [phone] PCP - General Family Medicine 01/21/23 Oneyda Zapata NP [address] [place] [phone] Nurse Practitioner Family Medicine 10/02/23 Service Desk Team Lead Relationship Specialty Start Date End Date Anuel Crawford MD [address] [place] [phone] PCP - General Family Medicine 01/21/23 Oneyda Zapata NP [address] [place] [phone] Nurse Practitioner Family Medicine 10/02/23 Service Desk Team Lead Relationship Specialty Start Date End Date Anuel Crawford MD [address] [place] [phone] PCP - General Family Medicine 01/21/23 Oneyda Zapata NP [address] [place] [phone] Nurse Practitioner Family Medicine 10/02/23 Service Desk Team Lead Relationship Specialty Start Date End Date Anuel Crawford MD [address] [place] [phone] PCP - General Family Medicine 01/21/23 Oneyda Zapata NP [address] [place] [phone] Nurse Practitioner Family Medicine 10/02/23 Service Desk Team Lead Relationship Specialty Start Date End Date Anuel Crawford MD [address] [place] [phone] PCP - General Family Medicine 01/21/23 Oneyda Zapata NP [address] [place] [phone] Nurse Practitioner Family Medicine 10/02/23 Service Desk Team Lead Relationship Specialty Start Date End Date Anuel Crawford MD [address] [place] [address] PCP - General Family Medicine 01/21/23 Oneyda Zapata NP [address] [place] [phone] Nurse Practitioner Family Medicine 10/02/23 Goals (unrecognized section and content) Goals may be documented in a n alternate section REASON FOR VISIT (unrecogniz ed section and content) Reason Comments Med Refill Reason Comments Anxiety FOR RECORDS PERTAINING TO PATIENTS WHO ARE [...] BE BASED ON THE PRIMARY CLINICAL RECORDS. [employer] provides no warranty or guarantee of the accuracy or completeness of information in this document.
[2025-02-09 10:01] LABS: Hematocrit 38.2 % (36.0-48.0); Hemoglobin 13.0 g/dL (12.0-16.0); Immature Granulocytes Abs Auto 0.01 10^3/uL (0.00-0.03); Immature Granulocytes Pct Auto 0.2 % (0.0-0.5); Lymphocytes Absolute Auto 1.8 10^3/uL (1.2-3.8); Mean Corpuscular HGB Conc 34.0 g/dL (29.9-35.2); Mean Corpuscular Hemoglobin 29.5 pg (26.7-34.0); Mean Corpuscular Volume 86.6 fL (81.0-99.0); Platelet Count 208 10^3/uL (150-450); Red Blood Count 4.41 10^6/uL (4.20-5.40); White Blood Count 6.5 10^3/uL (4.0-11.0)
[2025-02-09 10:13] LABS: Glucose Urine UA NEGATIVE (NEGATIVE)
[2025-02-09 10:26] LABS: Alanine Aminotransferase 26 U/L (14-59); Albumin Globulin Ratio 1.3; Albumin Level 4.0 g/dL (3.4-5.0); Alkaline Phosphatase 58 U/L (46-116); Anion Gap 11.0; Aspartate Amino Transferase 15 U/L (15-37); Blood Urea Nitrogen 16.0 mg/dL (7.0-18.0); Calcium 9.1 mg/dL (8.5-10.1); Carbon Dioxide 28.2 mmol/L (21.0-32.0); Chloride 105 mmol/L (98-107); Cholesterol 201 mg/dL (<=200); Estimated GFR (African America >60 (>=60 mL/min/1.73m^2); Estimated GFR (Non-African Ame >60 (>=60 mL/min/1.73m^2); Globulin 3.1 g/dL; Glucose 78 mg/dL (74-106); HDL Cholesterol 87 mg/dL (40-60); Potassium 4.2 mmol/L (3.5-5.1); Sodium 140 mmol/L (136-145); Thyroid Stimulating Hormone 0.671 uIU/mL (0.358-3.740); Total Protein 7.1 g/dL (6.4-8.2); Triglycerides 57 mg/dL (<=150); VLDL CHOLESTEROL 11.4 mg/dL
[2025-02-09 10:48] LABS: Iron 61.0 ug/dL (50.0-170.0); Percent Iron Saturation 20.1 %; Total Iron Binding Capacity 304.0 ug/dL (250.0-450.0)
[2025-02-09 11:18] LABS: Ferritin 31.0 ng/mL (8.0-252.0)
[2025-02-10 11:09] LABS: Transferrin 248 mg/dL (192-364); Vitamin B12 287 pg/mL (232-1245)
== END 2025-02-09 09:09 | disposition home or self-care (01) ==
LOC: LAB 09:09
PROVIDERS: PCP Nurse Practitioner; Visit Provider Nurse Practitioner
DX: E03.9 Hypothyroidism, unspecified (principal); D64.89 Other specified anemias; E55.9 Vitamin D deficiency, unspecified; E78.2 Mixed hyperlipidemia; Z72.0 Tobacco use
CPT/HCPCS: 36415; 80053; 80061; 81003; 82306; 82607; 82728; 83540; 83550; 84439; 84443; 84466; 85025